=== PATIENT | male | born 1965 | race African-American/Black ===

== ENCOUNTER 2016-08-06 18:35 | Emergency (ER) | payer SELFPAY ==
[~2016-08-06] VITALS: Ht 167.6 cm; Wt 96.0 kg
[~2016-08-06 18:35] MED LIST: 1-ME1LIQ PO; ALBU0.086 INH; ALBU6.7H INH; ASPI325T PO; GLUCTAB PO; IBUP800T23 PO; IPRA0.02 INH; LISI-363 PO; ROBA750T3 PO
[2016-08-06 18:37] VITALS: BP 228/128; PULSE 88; RESP 14; TEMP 98.7; O2SAT 95
[2016-08-06 20:09] VITALS: PULSE 82; RESP 18; O2SAT 95
[2016-08-06] MEDS ORDERED: ALBU6.7H INH (22:15)
[2016-08-06] MEDS ORDERED: LISI-515 PO (22:15)
[2016-08-06] MEDS ORDERED: ASPI81CH CHEW (22:15)
--- NOTE | 2016-08-06 22:23 | PD ---
HPI Chief Complaint: Hypertension Time Seen by Provider: 22:23 Travel History International Travel<30 days: No Contact w/Intl Traveler<30days: No Traveled to known affect area: No History of Present Illness HPI Patient comes in complaining of shortness of breath that has been getting progressively worse over the past 3 days. Patient reports he has a history of asthma has been taking his albuterol for this, last dose around 1500 today as well as NyQuil for symptomatic relief. Patient reports he's been coughing up some greenish phlegm. Patient reports he has been around his boss who had the flu. Patient denies any nausea, vomiting, abdominal pain, headache,tingling anywhere, back pain, or known fevers. Patient reports that he has chest pain with cough only. Patient's reports he's been off his blood pressure medicine for more than a week and has appointment with his primary care next week for refill. PFSH Past Medical History Asthma: Yes Cardiovascular Problems: Yes (HTN--RAN OUT OF MED 2 WEKS AGO) Diabetes: Yes Patient Takes Glucophage: No Diminished Hearing: No Hypertension: Yes Musculoskeletal: No Neurologic: Yes Immunizations Current: No Migraines: Yes Tetanus Vaccination: > 5 Years Influenza Vaccination: No Social History Alcohol Use: Yes (COUPLE OF BEERS PER WEEK) Tobacco Use: No Substance Use: No (COCAINE) Allergies-Medications (Allergen,Severity, Reaction): Coded Allergies: No Known Allergies (Verified , 08/06/16) Reported Meds & Prescriptions Reported Meds & Active Scripts Active Reported Proventil Hfa 6.7 GM Inh (Albuterol Sulfate) 90 Mcg/Act Aer 2 Puff INH Q4-6H PRN Proventil Hfa 6.7 GM Inh (Albuterol Sulfate) 90 Mcg/Act Aer 2 Puff INH Q4-6H PRN Aspirin 81 Mg Chew 81 Mg CHEW DAILY Lisinopril 20 Mg Tab 20 Mg PO BID Review of Systems Except as stated in HPI: all other systems reviewed are Neg Physical Exam Narrative GENERAL: Well-developed, overly nourished, in no acute distress, and non-ill appearing. SKIN: Warm and dry. HEAD: Atraumatic. Normocephalic. EYES: Pupils equal and round. EOMI. No scleral icterus. No injection or drainage. ENT: No nasal bleeding or discharge. Mucous membranes pink and moist. NECK: Trachea midline. No cervical lymphadenopathy. Supple. No nuclear rigidity. CARDIOVASCULAR: Regular rate and rhythm. No murmur appreciated. Radial pulses are 2+, equal, and intact bilaterally. RESPIRATORY: No accessory muscle use. No respiratory distress. Wheezing and tightness noted throughout. Patient speaking in full sentences. GASTROINTESTINAL: Abdomen soft, non-tender, nondistended. Hepatic and splenic margins not palpable. Normal bowel sounds 4. No pulsatile mass. MUSCULOSKELETAL: No obvious deformities. No clubbing. No cyanosis. No edema. Full range of motion. NEUROLOGICAL: Awake and alert. No obvious cranial nerve deficits. Motor grossly within normal limits. Normal speech. PSYCHIATRIC: Appropriate mood and affect; insight and judgment normal. Data Data Last Documented VS Vital Signs Date Time Temp Pulse Resp B/P Pulse Ox O2 Delivery O2 Flow Rate FiO2 08/06/16 22:06 76 18 95 Room Air 08/06/16 18:37 98.7 228/128 Orders Complete Blood Count With Diff (08/06/16 22:20) Basic Metabolic Panel (Bmp) (08/06/16 22:20) Magnesium (Mg) (08/06/16 22:20) Influenzae A/B Antigen (08/06/16 22:20) Iv Access Insert/Monitor (08/06/16 22:20) Electrocardiogram (08/06/16 22:20) Ecg Monitoring (08/06/16 22:20) Oximetry (08/06/16 22:20) Oxygen Administration (08/06/16 22:20) Chest, Single Ap (08/06/16 22:20) Sodium Chloride 0.9% Flush (Ns Flush) (08/06/16 22:30) Methylprednisolone So Succ Inj (Solumedr (08/06/16 22:30) Albuterol Neb (Albuterol Neb) (08/06/16 22:30) Lisinopril (Prinivil) (08/06/16 22:30) MDM Medical Decision Making Medical Screen Exam Complete: Yes Emergency Medical Condition: Yes Differential Diagnosis Asthma exacerbation, pneumonia, influenza, hypertension, other Narrative Course Patient was seen and examined. Initial and radiological studies were ordered. Patient was signed out to Dr. Nash. Please see his documentation final diagnosis and disposition. James Sorto Aug 06, 2016 22:23
[2016-08-06] MEDS: RESP: ALBUTEROL 2.5 MG/3 ML NEB (SCH) INH ×2 (22:28→22:29)
[2016-08-06 22:30] VITALS: O2SAT 94
[2016-08-06] MEDS ORDERED: LISINOPRIL 20 MG TAB PO ONE (22:30)
[2016-08-06] MEDS ORDERED: methylPREDNISolone SOD SUCC 125 MG/2 ML VIAL IVP ONE (22:30)
[2016-08-06] MEDS ORDERED: SODIUM CHLORIDE 0.9% FLUSH 5 ML FLUSH IVF PRN (22:30)
--- NOTE | 2016-08-06 23:00 | RADRPT ---
EXAM DATE/TIME: 08/06/2016 20:33 [facility] COMPARISON: No previous studies available for comparison. INDICATIONS : Shortness of breath and cough. MEDICAL HISTORY : Hypertension. Asthma. SURGICAL HISTORY : None. ENCOUNTER: Initial ACUITY: 2 days PAIN SCORE: 0/10 LOCATION: Bilateral chest FINDINGS: A single view of the chest demonstrates the lungs to be symmetrically aerated without evidence of mas s, infiltrate or effusion. The cardiomediastinal contours are unremarkable. Osseous structures are intact. CONCLUSION: No acute disease. Mason Mathis MD on August 06, 2016 at 22:59 Board Certified Radiologist. This report was verified electronically.
[2016-08-07] VITALS: BP 225/127; PULSE 76; RESP 18; TEMP 98.4; O2SAT 96
[2016-08-07 00:05] LABS: BICARBONATE 27.1 MEQ/L (21.0-32.0); MAGNESIUM 2.2 MG/DL (1.5-2.5); POTASSIUM 3.8 MEQ/L (3.5-5.1)
[2016-08-07] MEDS ORDERED: cloNIDine HCL 0.1 MG TAB PO ONE (00:45)
[2016-08-07 00:50] LABS: AUTOMATED NEUTROPHIL # 3.9 TH/MM3 (1.8-7.7); BASOPHIL % 0.6 % (0.0-2.0); EOSINOPHIL # 0.3 TH/MM3 (0-0.4); EOSINOPHIL % 4.6 % (0.0-4.0); HEMATOCRIT 42.4 % (39.0-51.0); HEMO FLAGS DIFF FINAL; LYMPH % 30.4 % (9.0-44.0); LYMPHOCYTE # 2.2 TH/MM3 (1.0-4.8); MEAN CELL VOLUME 93.2 FL (80.0-100.0); MEAN CORPUSCULAR HGB CONC 34.3 % (32.0-36.0); MONO % 11.3 % (0.0-8.0); NEUT % 53.1 % (16.0-70.0); PLATELET COUNT 313 TH/MM3 (150-450); RED BLOOD COUNT 4.55 MIL/MM3 (4.50-5.90); RED CELL DISTRIBUTION WIDTH 14.2 % (11.6-17.2); WHITE BLOOD COUNT 7.3 TH/MM3 (4.0-11.0)
[2016-08-07] MEDS ORDERED: LISI-515 PO (01:45)
[2016-08-07] MEDS ORDERED: PRED20 PO (01:45)
--- NOTE | 2016-08-07 01:46 | PD ---
Data Data Last Documented VS Vital Signs Date Time Temp Pulse Resp B/P Pulse Ox O2 Delivery O2 Flow Rate FiO2 08/07/16 02:21 82 18 173/110 96 Room Air 08/07/16 00:00 98.4 08/06/16 23:54 2 Orders Complete Blood Count With Diff (08/06/16 22:20) Basic Metabolic Panel (Bmp) (08/06/16 22:20) Magnesium (Mg) (08/06/16 22:20) Influenzae A/B Antigen (08/06/16 22:20) Iv Access Insert/Monitor (08/06/16 22:20) Electrocardiogram (08/06/16 22:20) Ecg Monitoring (08/06/16 22:20) Oximetry (08/06/16 22:20) Oxygen Administration (08/06/16 22:20) Chest, Single Ap (08/06/16 22:20) Sodium Chloride 0.9% Flush (Ns Flush) (08/06/16 22:30) Methylprednisolone So Succ Inj (Solumedr (08/06/16 22:30) Albuterol Neb (Albuterol Neb) (08/06/16 22:30) Lisinopril (Prinivil) (08/06/16 22:30) Clonidine (Catapres) (08/07/16 00:45) Albuterol Hfa Inh (Proair Hfa Inh) (08/07/16 02:00) Labs Laboratory Tests Test 08/06/16 23:15 White Blood Count 7.3 TH/MM3 Red Blood Count 4.55 MIL/MM3 Hemoglobin 14.6 GM/DL Hematocrit 42.4 % Mean Corpuscular Volume 93.2 FL Mean Corpuscular Hemoglobin 32.0 PG Mean Corpuscular Hemoglobin 34.3 % Concent Red Cell Distribution Width 14.2 % Platelet Count 313 TH/MM3 Mean Platelet Volume 7.2 FL Neutrophils (%) (Auto) 53.1 % Lymphocytes (%) (Auto) 30.4 % Monocytes (%) (Auto) 11.3 % Eosinophils (%) (Auto) 4.6 % Basophils (%) (Auto) 0.6 % Neutrophils # (Auto) 3.9 TH/MM3 Lymphocytes # (Auto) 2.2 TH/MM3 Monocytes # (Auto) 0.8 TH/MM3 Eosinophils # (Auto) 0.3 TH/MM3 Basophils # (Auto) 0.0 TH/MM3 CBC Comment DIFF FINAL Differential Comment Sodium Level 142 MEQ/L Potassium Level 3.8 MEQ/L Chloride Level 107 MEQ/L Carbon Dioxide Level 27.1 MEQ/L Anion Gap 8 MEQ/L Blood Urea Nitrogen 18 MG/DL Creatinine 1.28 MG/DL Estimat Glomerular Filtration 71 ML/MIN Rate Random Glucose 89 MG/DL Calcium Level 8.9 MG/DL Magnesium Level 2.2 MG/DL [facility] Medical Record Reviewed: Yes Supervised Visit with RAMIRO: Yes Narrative Course CBC & BMP Diagram 08/06/16 23:15 Last 24 hours Impressions Chest X-Ray 08/06/16 2220 Signed Impressions: Service Date/Time: Saturday, August 06, 2016 20:33 - CONCLUSION: No acute disease. Mason Mathis MD Patient reports feeling quite a bit better upon reassessment about 1:30 AM. He has received breathing treatments and steroids. He received clonidine about 15 or 20 minutes prior to the reassessment. His blood pressure was 201/115. We' ll send him home with a lisinopril prescription. The patient has follow-up with primary care provider in a few days. Repeat blood pressure 170/110 at 2:30 PM. He is asymptomatic. Follow-up with primary care as discussed. Diagnosis Primary Impression: Hypertension Qualified Code: I10 - Essential hypertension Additional Impression: Asthma Qualified Code: J45.901 - Asthma with acute exacerbation, unspecified asthma severity Referrals: Primary Care Physician 2 days Additional Instruction: You have a choice when it comes to health care, and we are glad that you chose [facility]. Hopefully, we have met your expectations on today's visit. You are welcome to return to [facility] at any time, as we are committed to meeting the health care needs of our community. Med/Other Pt SpecificInfo: Prescription(s) given Scripts Prednisone 20 Mg Tab40 Mg PO DAILY 4 Days Ref 0 Take 40 mg (2 tablets) daily for 5 days Prov:Yuriy Nash MD 08/07/16 Lisinopril 20 Mg Tab20 Mg PO BID #30 TAB Ref 0 Prov:Yuriy Nash MD 08/07/16 Disposition: 01 DISCHARGE HOME Condition: Stable Yuriy Nash MD Aug 07, 2016 01:46
[2016-08-07] MEDS ORDERED: ALBUTEROL SULFATE 90 MCG/ACT HFA 8 GM INHALER INH ONE (02:00)
[2016-08-07 02:21] VITALS: BP 173/110; PULSE 82; RESP 18; O2SAT 96
--- NOTE | 2016-08-07 22:02 | EKG ---
Date Performed: 08/06/2016 Time Performed: 23:59:20 PTAGE: 51 years EKG: Sinus rhythm LEFT VENTRICULAR HYPERTROPHY AND ST-T CHANGE ABNORMAL ECG PREVIOUS TRACING : 03/30/2011 02.34 Compared to the previous tracing, previously early repolari zation now with more ST/T waves changes of LVH DOCTOR: Ariel Nash Interpretating Date/Time 08/07/2016 22:01:25
== END 2016-08-07 03:01 | disposition home or self-care (01) ==
LOC: NEPC 18:35
DX: I10 Essential (primary) hypertension (principal); J45.909 Unspecified asthma, uncomplicated; E11.9 Type 2 diabetes mellitus without complications; R94.31 Abnormal electrocardiogram [ECG] [EKG]; Z79.84 Long term (current) use of oral hypoglycemic drugs
CPT/HCPCS: 71010; 80048; 83735; 85025; 87804; 93005; 94640; 94664; 96374; 99284; J2930; J7613

== ENCOUNTER 2016-09-16 08:59 | Emergency (ER) | payer SELFPAY ==
[~2016-09-16] VITALS: Ht 167.6 cm; Wt 90.0 kg
[~2016-09-16 08:59] MED LIST changes: -1-ME1LIQ PO; -ALBU0.086 INH; -ASPI325T PO; +ASPI81CH CHEW; -GLUCTAB PO; -IBUP800T23 PO; -IPRA0.02 INH; -LISI-363 PO; +LISI-515 PO; +PRED20 PO; -ROBA750T3 PO
[2016-09-16 09:00] VITALS: BP 176/102; PULSE 72; RESP 20; TEMP 97.5; O2SAT 100
--- NOTE | 2016-09-16 09:38 | PD ---
HPI Chief Complaint: Abdominal Pain Time Seen by Provider: 09:35 Travel History International Travel<30 days: No Contact w/Intl Traveler<30days: No Traveled to known affect area: No History of Present Illness HPI 51-year-old male with no significant past medical issues, presents to the ER today because he states that he has 8/10 pain that started overnight in the epigastric region, several episodes of diarrhea after eating [place] greens last night. He denies any fevers, nausea, vomiting, chest pains, or any other symptoms. He states that the pain is now getting better and is now a 5 out of 10. He does not know any sick contacts. He does not know of any exacerbating or alleviating factors. Modifying Factors: None Associated Signs & Symptoms: Epigastric abdominal pain, diarrhea Risk Factors: Possible bad food exposure PFSH Past Medical History Asthma: Yes Cardiovascular Problems: Yes Diabetes: Yes Patient Takes Glucophage: No Diminished Hearing: No Hypertension: Yes Musculoskeletal: No Neurologic: Yes Immunizations Current: No Migraines: Yes Social History Alcohol Use: Yes (COUPLE OF BEERS PER WEEK) Tobacco Use: No Substance Use: Yes (hx COCAINE) Allergies-Medications (Allergen,Severity, Reaction): Coded Allergies: No Known Allergies (Verified , 08/06/16) Reported Meds & Prescriptions Reported Meds & Active Scripts Active Lisinopril 20 Mg Tab 20 Mg PO BID Reported Proventil Hfa 6.7 GM Inh (Albuterol Sulfate) 90 Mcg/Act Aer 2 Puff INH Q4-6H PRN Aspirin 81 Mg Chew 81 Mg CHEW DAILY Review of Systems Except as stated in HPI: all other systems reviewed are Neg Physical Exam Narrative GENERAL: Well-developed middle age -Fil[place]ino male patient currently not in any acute distress. Awake and oriented 3. SKIN: Warm and dry. HEAD: Atraumatic. Normocephalic. EYES: Pupils equal and round. No scleral icterus. No injection or drainage. ENT: No nasal bleeding or discharge. Mucous membranes pink and moist. NECK: Trachea midline. No JVD. CARDIOVASCULAR: Regular rate and rhythm. No murmur appreciated. RESPIRATORY: No accessory muscle use. Clear to auscultation. Breath sounds equal bilaterally. GASTROINTESTINAL: Abdomen soft, non-tender, nondistended. Hepatic and splenic margins not palpable. MUSCULOSKELETAL: No obvious deformities. No clubbing. No cyanosis. No edema. NEUROLOGICAL: Awake and alert. No obvious cranial nerve deficits. Motor grossly within normal limits. Normal speech. PSYCHIATRIC: Appropriate mood and affect; insight and judgment normal. Data Data Last Documented VS Vital Signs Date Time Temp Pulse Resp B/P Pulse Ox O2 Delivery O2 Flow Rate FiO2 09/16/16 11:00 60 16 157/90 97 Room Air 09/16/16 09:00 97.5 Orders Complete Blood Count With Diff (09/16/16 09:35) Comprehensive Metabolic Panel (09/16/16 09:35) Lipase (09/16/16 09:35) Abdomen, Flat & Upright (09/16/16 ) Iv Access Insert/Monitor (09/16/16 09:35) Ecg Monitoring (09/16/16 09:35) Oximetry (09/16/16 09:35) Sodium Chloride 0.9% Flush (Ns Flush) (09/16/16 09:45) Influenzae A/B Antigen (09/16/16 09:35) Labs Laboratory Tests Test 09/16/16 09:44 White Blood Count 6.2 TH/MM3 Red Blood Count 4.54 MIL/MM3 Hemoglobin 14.5 GM/DL Hematocrit 43.1 % Mean Corpuscular Volume 94.8 FL Mean Corpuscular Hemoglobin 31.9 PG Mean Corpuscular Hemoglobin 33.6 % Concent Red Cell Distribution Width 14.6 % Platelet Count 310 TH/MM3 Mean Platelet Volume 7.0 FL Neutrophils (%) (Auto) 54.2 % Lymphocytes (%) (Auto) 32.7 % Monocytes (%) (Auto) 10.5 % Eosinophils (%) (Auto) 2.3 % Basophils (%) (Auto) 0.3 % Neutrophils # (Auto) 3.4 TH/MM3 Lymphocytes # (Auto) 2.0 TH/MM3 Monocytes # (Auto) 0.7 TH/MM3 Eosinophils # (Auto) 0.1 TH/MM3 Basophils # (Auto) 0.0 TH/MM3 CBC Comment DIFF FINAL Differential Comment Sodium Level 141 MEQ/L Potassium Level 4.3 MEQ/L Chloride Level 107 MEQ/L Carbon Dioxide Level 28.4 MEQ/L Anion Gap 6 MEQ/L Blood Urea Nitrogen 13 MG/DL Creatinine 1.33 MG/DL Estimat Glomerular Filtration 68 ML/MIN Rate Random Glucose 98 MG/DL Calcium Level 8.2 MG/DL Total Bilirubin 0.3 MG/DL Aspartate Amino Transf 26 U/L (AST/SGOT) Alanine Aminotransferase 33 U/L (ALT/SGPT) Alkaline Phosphatase 39 U/L Total Protein 7.1 GM/DL Albumin 3.2 GM/DL Lipase 215 U/L MDM Medical Decision Making Medical Screen Exam Complete: Yes Emergency Medical Condition: Yes Medical Record Reviewed: Yes Interpretation(s) Laboratory Tests Test 09/16/16 09:44 Monocytes (%) (Auto) 10.5 % (0.0-8.0) Creatinine 1.33 MG/DL (0.60-1.30) Estimat Glomerular Filtration 68 ML/MIN (>89) Rate Calcium Level 8.2 MG/DL (8.5-10.1) Alkaline Phosphatase 39 U/L (45-117) Albumin 3.2 GM/DL (3.4-5.0) Differential Diagnosis Epigastric abdominal pain, diarrheagastritis versus gastroenteritis versus foodborne illness versus viral syndrome versus dehydration versus pancreatitis versus metabolic issues Narrative Course Abdomen is fairly benign. X-ray did not show any signs of acute obstruction or free air. Lab work shows no significant metabolic issues or influenza. At this point, my plan would be to release him with follow-up to primary care physician. Return for any worsening in symptoms as needed. The plan has discussed with him and he states understanding. Diagnosis Primary Impression: Abdominal pain Disposition: DISCHARGE HOME Condition: Stable SoonthJoe barajas MD Sep 16, 2016 09:38
[2016-09-16] MEDS ORDERED: SODIUM CHLORIDE 0.9% FLUSH 5 ML FLUSH IVF PRN (09:45)
[2016-09-16 10:01] LABS: AUTOMATED NEUTROPHIL # 3.4 TH/MM3 (1.8-7.7); BASOPHIL % 0.3 % (0.0-2.0); EOSINOPHIL # 0.1 TH/MM3 (0-0.4); EOSINOPHIL % 2.3 % (0.0-4.0); HEMATOCRIT 43.1 % (39.0-51.0); HEMO FLAGS DIFF FINAL; LYMPH % 32.7 % (9.0-44.0); MEAN CELL VOLUME 94.8 FL (80.0-100.0); MEAN CORPUSCULAR HEMOGLOBIN 31.9 PG (27.0-34.0); MEAN CORPUSCULAR HGB CONC 33.6 % (32.0-36.0); MONO % 10.5 % (0.0-8.0); NEUT % 54.2 % (16.0-70.0); PLATELET COUNT 310 TH/MM3 (150-450); RED BLOOD COUNT 4.54 MIL/MM3 (4.50-5.90); RED CELL DISTRIBUTION WIDTH 14.6 % (11.6-17.2); WHITE BLOOD COUNT 6.2 TH/MM3 (4.0-11.0)
[2016-09-16 10:25] LABS: ANION GAP 6 MEQ/L (5-15); AST (GOT) 26 U/L (15-37); BICARBONATE 28.4 MEQ/L (21.0-32.0); BLOOD UREA NITROGEN 13 MG/DL (7-18); CHLORIDE 107 MEQ/L (98-107); GLOMERULAR FILTRATION RATE 68 ML/MIN (>89); POTASSIUM 4.3 MEQ/L (3.5-5.1); SODIUM (NA) 141 MEQ/L (136-145)
[2016-09-16 10:29] LABS: ALKALINE PHOSPHATASE 39 U/L (45-117); ALT (GPT) 33 U/L (12-78); TOTAL BILIRUBIN ADULT 0.3 MG/DL (0.2-1.0)
[2016-09-16 11:00] VITALS: BP 157/90; PULSE 60; RESP 16; O2SAT 97
--- NOTE | 2016-09-16 12:58 | RADRPT ---
EXAM DATE/TIME: 09/16/2016 10:16 [facility] COMPARISON: No previous studies available for comparison. INDICATIONS : Abdomen pain. MEDICAL HISTORY : None. SURGICAL HISTORY : None. ENCOUNTER: Initial ACUITY: 1 day PAIN SCORE: 5/10 LOCATION: Bilateral abdomen FINDINGS: Supine and upright views of the abdomen were performed. The abdominal bowel gas pattern is normal. No air fluid levels are seen. No abnormal masses, calcifications, or organomegaly is seen. The visu alized lower lungs are clear. No evidence of free intraperitoneal gas. The osseous structures are u nremarkable. CONCLUSION: Radiographically benign abdomen. Oh Prieto MD on September 16, 2016 at 12:56 Board Certified Radiologist. This report was verified electronically.
== END 2016-09-16 11:45 | disposition home or self-care (01) ==
LOC: NEPE 08:59
DX: R10.13 Epigastric pain (principal); R19.7 Diarrhea, unspecified; J45.909 Unspecified asthma, uncomplicated; E11.9 Type 2 diabetes mellitus without complications; I10 Essential (primary) hypertension
CPT/HCPCS: 74020; 80053; 83690; 85025; 87804; 99284

== ENCOUNTER 2016-11-16 07:57 | Emergency (ER) | payer SELFPAY ==
[~2016-11-16] VITALS: Ht 167.6 cm; Wt 95.5 kg
[~2016-11-16 07:57] MED LIST changes: -PRED20 PO
[2016-11-16 07:58] VITALS: BP 183/106; PULSE 73; RESP 18; TEMP 97.9; O2SAT 97
--- NOTE | 2016-11-16 09:54 | RADRPT ---
EXAM DATE/TIME: 11/16/2016 09:14 [facility] COMPARISON: No previous studies available for comparison. INDICATIONS : Left knee pain, swelling for 1 week with no known trauma MEDICAL HISTORY : None. SURGICAL HISTORY : None. ENCOUNTER: Initial ACUITY: 1 week PAIN SCORE: 7/10 LOCATION: Left anterior knee FINDINGS: 4 views of the left knee. Moderate to large joint effusion. No evidence of joint narrowing. Small lat eral part osteophytes. Bone alignment within normal limits. No evidence of fracture. CONCLUSION: Prominent joint effusion. No evidence of fracture. Minimal osteoarthritic findings. Paolo Nunn MD on November 16, 2016 at 9:51 Board Certified Radiologist. This report was verified electronically.
--- NOTE | 2016-11-16 10:04 | PD ---
HPI Chief Complaint: Musculoskeletal Complaint Time Seen by Provider: 08:50 Travel History International Travel<30 days: No Contact w/Intl Traveler<30days: No Traveled to known affect area: No History of Present Illness HPI Patient is a 51-year-old male presents emergency Department with complaint of left knee pain. 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 Approximately 3 days ago he noticed pain in the left knee. He does not remember any specific injury however. He notes swelling to the knee and pain in the medial joint and popliteal region. He notes a slight amount of swelling and pain that radiates into the proximal calf. No recent travel, history of DVT or PE risk factors. States bending the knee past 90 reproduces pain, improved with Tylenol. PFSH Past Medical History Hx Anticoagulant Therapy: No Asthma: Yes Cardiovascular Problems: No Chemotherapy: No Cerebrovascular Accident: No Diabetes: No Diminished Hearing: No Hypertension: Yes Musculoskeletal: No Neurologic: Yes Respiratory: No Immunizations Current: No Migraines: Yes Social History Alcohol Use: Yes (COUPLE OF BEERS PER WEEK) Tobacco Use: No Substance Use: Yes (hx COCAINE) Allergies-Medications (Allergen,Severity, Reaction): Coded Allergies: No Known Allergies (Verified , 08/06/16) Reported Meds & Prescriptions Reported Meds & Active Scripts Active Lisinopril 20 Mg Tab 20 Mg PO BID Reported Proventil Hfa 6.7 GM Inh (Albuterol Sulfate) 90 Mcg/Act Aer 2 Puff INH Q4-6H PRN Aspirin 81 Mg Chew 81 Mg CHEW DAILY Review of Systems Except as stated in HPI: all other systems reviewed are Neg Physical Exam Narrative GENERAL: Obese male in no acute distress SKIN: Focused skin assessment warm/dry. HEAD: Normocephalic. EYES: No scleral icterus. No injection or drainage. ENT: Mucous membranes pink and moist. NECK: Supple CARDIOVASCULAR: Regular rate and rhythm. RESPIRATORY: No accessory muscle use. GASTROINTESTINAL: Obese MUSCULOSKELETAL: Left knee with obvious swelling, questionable joint effusion. The swelling does extend into the proximal calf region. Mild tenderness palpation along the medial joint line. No obvious ligamentous laxity though exam certainly is limited due to patient relaxation. No positive meniscal testing. Patient is able fully extend the knee and flex beyond 90. No palpable cords within the calf. NEUROLOGICAL: Awake and alert. Normal speech. PSYCHIATRIC: Appropriate mood and affect; insight and judgment normal. Data Data Last Documented VS Vital Signs Date Time Temp Pulse Resp B/P Pulse Ox O2 Delivery O2 Flow Rate FiO2 11/16/16 07:58 97.9 73 18 183/106 97 Room Air Orders Knee, Complete (4vws) (11/16/16 ) Us Leg Venous Doppler (11/16/16 ) MDM Medical Decision Making Medical Screen Exam Complete: Yes Emergency Medical Condition: Yes Medical Record Reviewed: Yes Differential Diagnosis 51-year-old male here with complaint of atraumatic left knee pain. Differential includes ligamentous injury, meniscal injury, joint effusion, DVT, Colvin cyst. Narrative Course X-rays of the left knee were obtained showing joint effusion but no evidence of bony injury. Duplex ultrasound the left lower extremity showed no evidence of DVT. Elongated 7.7 x 2.0 x 5.36 cm fluid collection in the popliteal fossa likely representing Colvin cyst. 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 Tylenol, ibuprofen as needed for pain. Elevate for swelling. Med/Other Pt SpecificInfo: No Change to Meds Disposition: 01 DISCHARGE HOME Condition: Stable Haydee Garcia MD November 16, 2016 10:04
--- NOTE | 2016-11-16 10:52 | RADRPT ---
EXAM DATE/TIME: 11/16/2016 09:41 [facility] COMPARISON: No previous studies available for comparison. INDICATIONS : Left leg swelling. MEDICAL HISTORY : Head trauma. Migraines. Hyperlipidemia. Asthma. HTN. Hay fever. Substance use. SURGICAL HISTORY : Right arm surgery. ENCOUNTER: Initial ACUITY: 4 - 6 days PAIN SCORE: 8/10 LOCATION: Left leg. TECHNIQUE: Venous ultrasound of the leg was performed from the inguinal ligament to the proximal calf. Real-lars e, color Doppler and spectral tracing, compression and augmentation techniques were used. FINDINGS: There is normal compressibility of the deep venous system from the inguinal region to the proximal ca lf. No echogenic clot is seen in the lumen of the common femoral, femoral, popliteal, and posterior tibial veins. There is a normal response of the venous system to proximal and distal augmentation an d respiration. CONCLUSION: 1. No evidence of left lower extremity DVT. 2. Elongated 7.7 x 2.0 x 5.3 cm fluid collection in the popliteal fossa likely represents a Colvin cys t. Paolo Nunn MD on November 16, 2016 at 10:50 Board Certified Radiologist. This report was verified electronically.
[2016-11-16] MEDS ORDERED: LISI-515 PO (11:04)
== END 2016-11-16 11:35 | disposition home or self-care (01) ==
LOC: NEPC 09:20
DX: M71.22 Synovial cyst of popliteal space [Baker], left knee (principal); M79.89 Other specified soft tissue disorders
CPT/HCPCS: 73564; 93971

== ENCOUNTER 2016-12-29 11:09 | Emergency (ER) | payer SELFPAY ==
[~2016-12-29] VITALS: Ht 167.6 cm; Wt 85.0 kg
[2016-12-29 11:10] VITALS: BP 197/114; PULSE 82; RESP 20; TEMP 97.9; O2SAT 97
[2016-12-29] MEDS ORDERED: SODIUM CHLOR 0.9% 1000 ML INJ 1,000 ML IV SCH (11:26)
[2016-12-29] MEDS ORDERED: FAMOTIDINE 20 MG/2 ML VIAL IV PUSH ONE (11:30)
[2016-12-29] MEDS ORDERED: PANTOPRAZOLE SODIUM 40 MG VIAL IVP ONE (11:30)
[2016-12-29] MEDS ORDERED: ONDANSETRON HCL 4 MG/2 ML VIAL IVP ONE (11:30)
[2016-12-29] MEDS ORDERED: MORPHINE SULFATE 4 MG/ML INJ IV PUSH ONE ×2 (11:30→13:15)
[2016-12-29 11:47] VITALS: O2SAT 99
--- NOTE | 2016-12-29 12:02 | PD ---
HPI Chief Complaint: GI Complaint Time Seen by Provider: 11:59 Travel History International Travel<30 days: No Contact w/Intl Traveler<30days: No Traveled to known affect area: No History of Present Illness HPI 51-year-old male that presents to the ED for evaluation of epigastric pain, nausea and vomiting and hematemesis. Patient has had this since this morning. Per patient he ate some chicken and the symptoms started. Per patient he felt like that she can attending when all the way through. Per patient he vomited a couple times blood. Per patient he was a lot. He cannot really give me a quantity he states that it was bright red. She denies ever having like this before. Patient states having some epigastric discomfort. He denies any chest pain. No shortness of breath. He denies taking any NSAIDs. No history of ulcers. No bowel movement issues or urinary issues. Denies any other symptoms. Fevers chills or sweats. No allergies to medication. Per patient the pain is 6 out of 10. PFSH Past Medical History Hx Anticoagulant Therapy: No Asthma: Yes Cardiovascular Problems: No Chemotherapy: No Cerebrovascular Accident: No Diabetes: No Diminished Hearing: No Hypertension: Yes Musculoskeletal: No Neurologic: Yes Respiratory: No Immunizations Current: No Migraines: Yes Tetanus Vaccination: < 5 Years Influenza Vaccination: No Social History Alcohol Use: No Tobacco Use: No Substance Use: No Allergies-Medications (Allergen,Severity, Reaction): Coded Allergies: No Known Allergies (Verified , 08/06/16) Reported Meds & Prescriptions Reported Meds & Active Scripts Active Ranitidine (Ranitidine HCl) 150 Mg Tab 150 Mg PO BID Protonix (Pantoprazole Sodium) 40 Mg Tab 40 Mg PO DAILY Lisinopril 20 Mg Tab 20 Mg PO BID Reported Proventil Hfa 6.7 GM Inh (Albuterol Sulfate) 90 Mcg/Act Aer 2 Puff INH Q4-6H PRN Aspirin 81 Mg Chew 81 Mg CHEW DAILY Review of Systems Except as stated in HPI: all other systems reviewed are Neg Physical Exam Narrative GENERAL: SKIN: Warm and dry. HEAD: Atraumatic. Normocephalic. EYES: Pupils equal and round. No scleral icterus. No injection or drainage. ENT: No nasal bleeding or discharge. Mucous membranes pink and moist. Tongue is midline. No uvula deviation. NECK: Trachea midline. No JVD. CARDIOVASCULAR: Regular rate and rhythm. No murmurs, S3, S4. RESPIRATORY: No accessory muscle use. Clear to auscultation. Breath sounds equal bilaterally. GASTROINTESTINAL: Abdomen soft, tender to palpation on the epigastric area, nondistended. Hepatic and splenic margins not palpable. MUSCULOSKELETAL: Extremities without clubbing, cyanosis, or edema. No obvious deformities. Full range of motion of the upper and lower extremities bilaterally. 2+ pulses bilaterally. NEUROLOGICAL: Awake and alert. No obvious cranial nerve deficits. Motor grossly within normal limits. Five out of 5 muscle strength in the arms and legs. Normal speech. PSYCHIATRIC: Appropriate mood and affect; insight and judgment normal. Data Data Last Documented VS Vital Signs Date Time Temp Pulse Resp B/P Pulse Ox O2 Delivery O2 Flow Rate FiO2 12/29/16 11:47 99 12/29/16 11:10 97.9 82 20 197/114 Room Air Orders Complete Blood Count With Diff (12/29/16 11:26) Comprehensive Metabolic Panel (12/29/16 11:26) Lipase (12/29/16 11:26) Prothrombin Time / Inr (Pt) (12/29/16 11:26) Act Partial Throm Time (Ptt) (12/29/16 11:26) Urinalysis - C+S If Indicated (12/29/16 11:26) Ct Abd/Pel W Iv Contrast(Rout) (12/29/16 11:26) Iv Access Insert/Monitor (12/29/16 11:26) Ecg Monitoring (12/29/16 11:26) Oximetry (12/29/16 11:26) Morphine Inj (Morphine Inj) (12/29/16 11:30) Ondansetron Inj (Zofran Inj) (12/29/16 11:30) Pantoprazole Inj (Protonix Inj) (12/29/16 11:30) Sodium Chlor 0.9% 1000 Ml Inj (Ns 1000 M (12/29/16 11:26) Famotidine Inj (Pepcid Inj) (12/29/16 11:30) Iohexol 350 Inj (Omnipaque 350 Inj) (12/29/16 12:43) Morphine Inj (Morphine Inj) (12/29/16 13:15) Mandatory Outpatient Referral (12/29/16 13:07) Labs Laboratory Tests Test 12/29/16 11:45 White Blood Count 8.3 TH/MM3 Red Blood Count 4.37 MIL/MM3 Hemoglobin 14.0 GM/DL Hematocrit 40.4 % Mean Corpuscular Volume 92.6 FL Mean Corpuscular Hemoglobin 32.0 PG Mean Corpuscular Hemoglobin 34.6 % Concent Red Cell Distribution Width 14.4 % Platelet Count 323 TH/MM3 Mean Platelet Volume 6.7 FL Neutrophils (%) (Auto) 69.5 % Lymphocytes (%) (Auto) 21.3 % Monocytes (%) (Auto) 7.4 % Eosinophils (%) (Auto) 1.5 % Basophils (%) (Auto) 0.3 % Neutrophils # (Auto) 5.7 TH/MM3 Lymphocytes # (Auto) 1.8 TH/MM3 Monocytes # (Auto) 0.6 TH/MM3 Eosinophils # (Auto) 0.1 TH/MM3 Basophils # (Auto) 0.0 TH/MM3 CBC Comment DIFF FINAL Differential Comment Prothrombin Time 11.2 SEC Prothromb Time International 1.0 RATIO Ratio Activated Partial 25.2 SEC Thromboplast Time Sodium Level 139 MEQ/L Potassium Level 4.2 MEQ/L Chloride Level 107 MEQ/L Carbon Dioxide Level 23.2 MEQ/L Anion Gap 9 MEQ/L Blood Urea Nitrogen 11 MG/DL Creatinine 1.19 MG/DL Estimat Glomerular Filtration 78 ML/MIN Rate Random Glucose 75 MG/DL Calcium Level 8.5 MG/DL Total Bilirubin 0.3 MG/DL Aspartate Amino Transf 26 U/L (AST/SGOT) Alanine Aminotransferase 27 U/L (ALT/SGPT) Alkaline Phosphatase 46 U/L Total Protein 7.5 GM/DL Albumin 3.5 GM/DL Lipase 133 U/L [facility] Medical Decision Making Medical Screen Exam Complete: Yes Emergency Medical Condition: Yes Medical Record Reviewed: Yes Interpretation(s) CBC & BMP Diagram 12/29/16 11:45 LFTS WNL coags WNL Last Impressions Abdomen/Pelvis CT 12/29/16 1126 Signed Impressions: Service Date/Time: Thursday, December 29, 2016 12:29 - CONCLUSION: 1. 9.6 x 8.1 cm right-sided inguinal hernia containing fat and loculated fluid which appears to be contiguous with the right side of the bladder, possibly a portion of the bladder or bladder diverticulum that has herniated into the right inguinal canal. 3.8 x 3 cm fat containing umbilical hernia. Fatty liver. Small hiatal hernia. Mason Mathis MD Differential Diagnosis Peptic ulcer disease versus GI bleed versus gastritis versus gastroenteritis versus pancreatitis versus gallbladder disease Narrative Course 51-year-old male that presents to the ED for evaluation of epigastric pain and vomiting blood. Patient was properly examined and was found to have signs and symptoms consistent with what appears to be gastritis versus peptic ulcer disease. Patient did have some bleeding. No bleeding at this time. He has not vomited here. Labs and imaging ordered. Medications were given. Labs and imaging showed what appears to be a right-sided inguinal hernia with bladder involvement. This appears to be chronic. Patient also has been going on for about 5 years. He has no pain in the area appears to be no distress. Most of the pain is on the epigastric area. My attending Dr. Jimenes evaluated the patient with me and agrees with plan. This time patient will be sent home with prescriptions for Carafate, ranitidine, Protonix as well as lisinopril refill. Patient was told to follow with general surgeon. I made him and that a referral to the general surgeon as the hernia will require surgical fixation secondary to the involvement of nodules bowel but also bladder. Patient was told to follow with outpatient clinic for further management of his symptoms. Patient agrees with plan. See ED worsening symptoms. Diagnosis Primary Impression: Gastritis Qualified Code: K29.01 - Acute gastritis with hemorrhage, unspecified gastritis type Additional Impression: Inguinal hernia Qualified Code: K40.91 - Unilateral recurrent inguinal hernia without obstruction or gangrene Referrals: [facility] Patient Instructions: General Instructions, Narcotic given in the ED Additional Instructions: Take medications as prescribed. Follow with general surgery. Follow with clinic. See ED for worsening symptoms. Avoid any acidic foods including caffeine, alcohol, fast food or fried food until 100% back to normal. Med/Other Pt SpecificInfo: Prescription(s) given Scripts Ranitidine 150 Mg [id number] Mg PO BID #30 TAB Ref 0 Prov:Lexy Jimenes MD 12/29/16 Pantoprazole (Protonix)40 Mg Tab40 Mg PO DAILY #30 TAB Ref 0 Prov:Lexy Jimenes MD 12/29/16 Lisinopril 20 Mg Tab20 Mg PO BID #30 TAB Ref 0 Prov:Lexy Jimenes MD 12/29/16 Disposition: 01 DISCHARGE HOME Condition: Stable Trae Selby Dec 29, 2016 12:02
[2016-12-29 12:03] LABS: AUTOMATED NEUTROPHIL # 5.7 TH/MM3 (1.8-7.7); BASOPHIL % 0.3 % (0.0-2.0); EOSINOPHIL # 0.1 TH/MM3 (0-0.4); EOSINOPHIL % 1.5 % (0.0-4.0); HEMATOCRIT 40.4 % (39.0-51.0); HEMO FLAGS DIFF FINAL; LYMPH % 21.3 % (9.0-44.0); LYMPHOCYTE # 1.8 TH/MM3 (1.0-4.8); MEAN CELL VOLUME 92.6 FL (80.0-100.0); MEAN CORPUSCULAR HGB CONC 34.6 % (32.0-36.0); MONO % 7.4 % (0.0-8.0); NEUT % 69.5 % (16.0-70.0); PLATELET COUNT 323 TH/MM3 (150-450); RED BLOOD COUNT 4.37 MIL/MM3 (4.50-5.90); RED CELL DISTRIBUTION WIDTH 14.4 % (11.6-17.2); WHITE BLOOD COUNT 8.3 TH/MM3 (4.0-11.0)
[2016-12-29 12:08] LABS: APTT (PATIENT) 25.2 SEC (24.3-30.1); PROTHROMBIN TIME - PATIENT 11.2 SEC (9.8-11.6)
[2016-12-29 12:11] LABS: ALKALINE PHOSPHATASE 46 U/L (45-117); TOTAL BILIRUBIN ADULT 0.3 MG/DL (0.2-1.0)
[2016-12-29 12:16] LABS: ALT (GPT) 27 U/L (12-78); ANION GAP 9 MEQ/L (5-15); AST (GOT) 26 U/L (15-37); BICARBONATE 23.2 MEQ/L (21.0-32.0); BLOOD UREA NITROGEN 11 MG/DL (7-18); CHLORIDE 107 MEQ/L (98-107); GLOMERULAR FILTRATION RATE 78 ML/MIN (>89); POTASSIUM 4.2 MEQ/L (3.5-5.1); SODIUM (NA) 139 MEQ/L (136-145)
[2016-12-29] MEDS ORDERED: IOHEXOL 350 MG/ML 10 ML VIAL (for RAD DIAG) IV ONE (12:43)
--- NOTE | 2016-12-29 12:51 | RADRPT ---
EXAM DATE/TIME: 12/29/2016 12:29 [facility] COMPARISON: No previous studies available for comparison. INDICATIONS : Abdomen pain. IV CONTRAST: 100 cc Omnipaque 350 (iohexol) IV ORAL CONTRAST: No oral contrast ingested. RADIATION DOSE: 13.00 CTDIvol (mGy) MEDICAL HISTORY : Hypertension. SURGICAL HISTORY : None. ENCOUNTER: Initial ACUITY: 1 day PAIN SCALE: 4/10 LOCATION: Bilateral abdomen TECHNIQUE: Volumetric scanning of the abdomen and pelvis was performed. Using automated exposure control and ad justment of the mA and/or kV according to patient size, radiation dose was kept as low as reasonably achievable to obtain optimal diagnostic quality images. DICOM format image data is available electro nically for review and comparison. FINDINGS: Lung bases are clear. No acute bony abnormalities. Mild degenerative disc disease in the spine. There is a small hiatal hernia. Mild diffuse fatty infiltration of the liver. Spleen, kidneys and [place] unremarkable. Adrenal glands are mildly enlarged but likely benign. No calcified gallstones or biliary ductal dilatation. There is a fat containing umbilical hernia measuring about 3.8 x 3 cm. There is a right-sided inguinal hernia containing fat and loculated fluid measuring up to 9.6 x 8.1 c m. There is no herniation of bowel. A small portion of the right rehana-lateral aspect of the bladder does extend into the right inguinal hernia and it is possible that the fluid represents a bladder di verticulum or possibly some portion of bladder. There is no bowel obstruction. No free air or free fluid. CONCLUSION: 1. 9.6 x 8.1 cm right-sided inguinal hernia containing fat and loculated fluid which appears to be co ntiguous with the right side of the bladder, possibly a portion of the bladder or bladder diverticulu m that has herniated into the right inguinal canal. 3.8 x 3 cm fat containing umbilical hernia. Fatty liver. Small hiatal hernia. Mason Mathis MD on December 29, 2016 at 12:44 Board Certified Radiologist. This report was verified electronically.
[2016-12-29] MEDS ORDERED: PROT40TA PO (13:08)
[2016-12-29] MEDS ORDERED: LISI-515 PO (13:08)
[2016-12-29] MEDS ORDERED: RANI150T PO (13:08)
[2016-12-29] MEDS ORDERED: CARA1TAB6 PO (13:14)
[2016-12-29 13:32] VITALS: BP 179/97
--- NOTE | 2016-12-29 17:36 | PD ---
Data Data Last Documented VS Vital Signs Date Time Temp Pulse Resp B/P Pulse Ox O2 Delivery O2 Flow Rate FiO2 12/29/16 13:32 88 18 179/97 99 12/29/16 11:10 97.9 Room Air Orders Complete Blood Count With Diff (12/29/16 11:26) Comprehensive Metabolic Panel (12/29/16 11:26) Lipase (12/29/16 11:26) Prothrombin Time / Inr (Pt) (12/29/16 11:26) Act Partial Throm Time (Ptt) (12/29/16 11:26) Urinalysis - C+S If Indicated (12/29/16 11:26) Ct Abd/Pel W Iv Contrast(Rout) (12/29/16 11:26) Iv Access Insert/Monitor (12/29/16 11:26) Ecg Monitoring (12/29/16 11:26) Oximetry (12/29/16 11:26) Morphine Inj (Morphine Inj) (12/29/16 11:30) Ondansetron Inj (Zofran Inj) (12/29/16 11:30) Pantoprazole Inj (Protonix Inj) (12/29/16 11:30) Sodium Chlor 0.9% 1000 Ml Inj (Ns 1000 M (12/29/16 11:26) Famotidine Inj (Pepcid Inj) (12/29/16 11:30) Iohexol 350 Inj (Omnipaque 350 Inj) (12/29/16 12:43) Morphine Inj (Morphine Inj) (12/29/16 13:15) Mandatory Outpatient Referral (12/29/16 13:07) Labs Laboratory Tests Test 12/29/16 11:45 White Blood Count 8.3 TH/MM3 Red Blood Count 4.37 MIL/MM3 Hemoglobin 14.0 GM/DL Hematocrit 40.4 % Mean Corpuscular Volume 92.6 FL Mean Corpuscular Hemoglobin 32.0 PG Mean Corpuscular Hemoglobin 34.6 % Concent Red Cell Distribution Width 14.4 % Platelet Count 323 TH/MM3 Mean Platelet Volume 6.7 FL Neutrophils (%) (Auto) 69.5 % Lymphocytes (%) (Auto) 21.3 % Monocytes (%) (Auto) 7.4 % Eosinophils (%) (Auto) 1.5 % Basophils (%) (Auto) 0.3 % Neutrophils # (Auto) 5.7 TH/MM3 Lymphocytes # (Auto) 1.8 TH/MM3 Monocytes # (Auto) 0.6 TH/MM3 Eosinophils # (Auto) 0.1 TH/MM3 Basophils # (Auto) 0.0 TH/MM3 CBC Comment DIFF FINAL Differential Comment Prothrombin Time 11.2 SEC Prothromb Time International 1.0 RATIO Ratio Activated Partial 25.2 SEC Thromboplast Time Sodium Level 139 MEQ/L Potassium Level 4.2 MEQ/L Chloride Level 107 MEQ/L Carbon Dioxide Level 23.2 MEQ/L Anion Gap 9 MEQ/L Blood Urea Nitrogen 11 MG/DL Creatinine 1.19 MG/DL Estimat Glomerular Filtration 78 ML/MIN Rate Random Glucose 75 MG/DL Calcium Level 8.5 MG/DL Total Bilirubin 0.3 MG/DL Aspartate Amino Transf 26 U/L (AST/SGOT) Alanine Aminotransferase 27 U/L (ALT/SGPT) Alkaline Phosphatase 46 U/L Total Protein 7.5 GM/DL Albumin 3.5 GM/DL Lipase 133 U/L [facility]DM Supervised Visit with RAMIRO: Yes Narrative Course The history, exam, and medical decision-making in the associated midlevel provider note were completed with my assistance. I reviewed and agree with the findings presented. I attest that I had a [id number] encounter with the patient on the same day, and personally performed and documented my assessment and findings in the medical record. *My assessment and Findings: This is a 51-year-old male who presents to the emergency department with epigastric discomfort. His pain sounds typical of peptic ulcer disease or gastritis. He is tender only over the epigastrium. He is very well-appearing and labs are reassuring. CT abdomen and pelvis demonstrates a fairly large inguinal hernia with evidence of bladder containing tonight. He says he's had this hernia for years and it doesn't bother him. I don't think is related to his symptoms today. Patient will be discharged home with follow-up to primary care and ultimately general surgery. Diagnosis Primary Impression: Gastritis Qualified Code: K29.01 - Acute gastritis with hemorrhage, unspecified gastritis type Additional Impression: Inguinal hernia Qualified Code: K40.91 - Unilateral recurrent inguinal hernia without obstruction or gangrene Referrals: [facility] Patient Instructions: General Instructions, Narcotic given in the ED, Gastritis (ED), Inguinal Hernia (ED) Departure Forms: Tests/Procedures Additional Instruction: Take medications as prescribed. Follow with general surgery. Follow with clinic. See ED for worsening symptoms. Avoid any acidic foods including caffeine, alcohol, fast food or fried food until 100% back to normal. Scripts Sucralfate (Carafate)1 Gm Tab1 Gm PO QID #30 TAB Ref 0 On empty stomach Prov:Lexy Jimenes MD 12/29/16 Ranitidine 150 Mg [id number] Mg PO BID #30 TAB Ref 0 Prov:Lexy Jimenes MD 12/29/16 Pantoprazole (Protonix)40 Mg Tab40 Mg PO DAILY #30 TAB Ref 0 Prov:Lexy Jimenes MD 12/29/16 Lisinopril 20 Mg Tab20 Mg PO BID #30 TAB Ref 0 Prov:Lexy Jimenes MD 12/29/16 Disposition: 01 DISCHARGE HOME Condition: Stable Lexy Jimenes MD Dec 29, 2016 17:36
== END 2016-12-29 13:35 | disposition home or self-care (01) ==
LOC: NEPE 11:09
DX: K29.01 Acute gastritis with bleeding (principal); K40.91 Unilateral inguinal hernia, without obstruction or gangrene, recurrent
CPT/HCPCS: 74177; 80053; 83690; 85025; 85610; 85730; 96361; 96374; 96375; 99285; C9113; J2270; J2405; J7030; Q9967

== ENCOUNTER 2017-04-21 22:26 | Emergency (ER) | payer SELFPAY ==
[~2017-04-21] VITALS: Ht 167.6 cm; Wt 95.0 kg
[~2017-04-21 22:26] MED LIST changes: +CARA1TAB6 PO; +PROT40TA PO; +RANI150T PO
[2017-04-21 22:28] VITALS: BP 201/111; PULSE 64; RESP 16; TEMP 98.6; O2SAT 95
--- NOTE | 2017-04-21 23:23 | PD ---
HPI Chief Complaint: Abdominal Pain Time Seen by Provider: 23:23 Travel History International Travel<30 days: No Contact w/Intl Traveler<30days: No Traveled to known affect area: No History of Present Illness HPI 51-year-old male came to the emergency room with history of diarrhea and abdominal cramps since last night. Patient thinks that it's because of something he ate. Although his ate the same food and she does not have the similar symptoms. No history of known sick contacts. Patient says that he has had 5-6 episodes of watery stool that are nonbloody. No history of nausea vomiting. He looks uncomfortable. His last diarrhea was about half an hour ago he said. No recent antibiotic course. No recent hospitalization. Vital signs were otherwise stable. He pointed to his entire abdomen when asked for the location of the pain. Patient says the cramps seem to get worse when he has to have a bowel movement and after the bowel movement they feel little better. No history of fever or chills. PFSH Past Medical History Narrative Medical List of his past medical, surgical, social and family history is reviewed from the nursing note. Hx Anticoagulant Therapy: No Asthma: Yes Cardiovascular Problems: No Chemotherapy: No Cerebrovascular Accident: No Diabetes: No Diminished Hearing: No Hypertension: Yes Musculoskeletal: No Neurologic: Yes Respiratory: No Immunizations Current: No Migraines: Yes Tetanus Vaccination: Unknown Influenza Vaccination: No Social History Alcohol Use: Yes ("SOMETIMES") Tobacco Use: No Substance Use: No Allergies-Medications (Allergen,Severity, Reaction): Coded Allergies: No Known Allergies (Verified , 08/06/16) Comments No known drug allergies. Reported Meds & Prescriptions Reported Meds & Active Scripts Active Lomotil (Diphenoxylate-Atropine) 2.5-0.025 Mg Tab 1 Tab PO Q6H PRN Carafate (Sucralfate) 1 Gm Tab 1 Gm PO QID On empty stomach Ranitidine (Ranitidine HCl) 150 Mg Tab 150 Mg PO BID Protonix (Pantoprazole Sodium) 40 Mg Tab 40 Mg PO DAILY Lisinopril 20 Mg Tab 20 Mg PO BID Reported Proventil Hfa 6.7 GM Inh (Albuterol Sulfate) 90 Mcg/Act Aer 2 Puff INH Q4-6H PRN Aspirin 81 Mg Chew 81 Mg CHEW DAILY Narrative Medication List of his home medications reviewed from the nursing note. Review of Systems Except as stated in HPI: all other systems reviewed are Neg Gastrointestinal: Positive: Diarrhea, Abdominal Pain Physical Exam Narrative GENERAL: Awake, alert, moderate distress SKIN: Focused skin assessment warm/dry. HEAD: Atraumatic. Normocephalic. EYES: Pupils equal and round. No scleral icterus. No injection or drainage. ENT: No nasal bleeding or discharge. Mucous membranes pink and moist. NECK: Trachea midline. No JVD. CARDIOVASCULAR: Regular rate and rhythm. No murmur appreciated. RESPIRATORY: No accessory muscle use. Clear to auscultation. Breath sounds equal bilaterally. GASTROINTESTINAL: Abdomen generalized tenderness, distended, increased bowel sound. Hepatic and splenic margins not palpable. MUSCULOSKELETAL: No obvious deformities. No clubbing. No cyanosis. No edema. NEUROLOGICAL: Awake and alert. No obvious cranial nerve deficits. Motor grossly within normal limits. Normal speech. PSYCHIATRIC: Appropriate mood and affect; insight and judgment normal. Data Data Last Documented VS Orders Orders Complete Blood Count With Diff (04/21/17 23:32) Comprehensive Metabolic Panel (04/21/17 23:32) Ct Abd/Pel W/O Iv Contrast (04/21/17 23:32) Iv Access Insert/Monitor (04/21/17 23:32) Ecg Monitoring (04/21/17 23:32) Oximetry (04/21/17 23:32) Sodium Chlor 0.9% 1000 Ml Inj (Ns 1000 M (04/21/17 23:32) Sodium Chloride 0.9% Flush (Ns Flush) (04/21/17 23:45) Sodium Chlor 0.9% 1000 Ml Inj (Ns 1000 M (04/22/17 01:00) Diphenoxylate/Atropine Tab (Lomotil Tab) (04/22/17 01:00) Ed Discharge Order (04/22/17 01:05) Labs Laboratory Tests Test 04/21/17 23:45 White Blood Count 10.4 TH/MM3 Red Blood Count 4.69 MIL/MM3 Hemoglobin 15.4 GM/DL Hematocrit 44.7 % Mean Corpuscular Volume 95.3 FL Mean Corpuscular Hemoglobin 32.7 PG Mean Corpuscular Hemoglobin Concent 34.4 % Red Cell Distribution Width 14.7 % Platelet Count 301 TH/MM3 Mean Platelet Volume 7.5 FL Neutrophils (%) (Auto) 52.5 % Lymphocytes (%) (Auto) 19.3 % Monocytes (%) (Auto) 8.0 % Eosinophils (%) (Auto) 19.4 % Basophils (%) (Auto) 0.8 % Neutrophils # (Auto) 5.5 TH/MM3 Lymphocytes # (Auto) 2.0 TH/MM3 Monocytes # (Auto) 0.8 TH/MM3 Eosinophils # (Auto) 2.0 TH/MM3 Basophils # (Auto) 0.1 TH/MM3 CBC Comment AUTO DIFF Differential Comment AUTO DIFF CONFIRMED Blood Urea Nitrogen 13 MG/DL Creatinine 1.44 MG/DL Random Glucose 80 MG/DL Total Protein 7.7 GM/DL Albumin 3.7 GM/DL Calcium Level 8.8 MG/DL Alkaline Phosphatase 42 U/L Aspartate Amino Transf (AST/SGOT) 21 U/L Alanine Aminotransferase (ALT/SGPT) 30 U/L Total Bilirubin 0.3 MG/DL Sodium Level 139 MEQ/L Potassium Level 3.6 MEQ/L Chloride Level 103 MEQ/L Carbon Dioxide Level 31.2 MEQ/L Anion Gap 5 MEQ/L Estimat Glomerular Filtration Rate 62 ML/MIN [facility] Medical Decision Making Medical Screen Exam Complete: Yes Emergency Medical Condition: Yes Medical Record Reviewed: Yes Differential Diagnosis Acute gastritis, colitis, dehydration Narrative Course 1 AM blood test results of back and within acceptable limits. CT scan shows enteritis with thickened small bowel jimenez. There is incidental finding of hernia but no obstruction. Patient was given IV fluid bolus and pain medication. I have ordered Lomotil and he will be discharged home. Procedures EKG Prior to Arrival: No Diagnosis Primary Impression: Enteritis Additional Impression: Diarrhea Qualified Codes: R19.7 - Diarrhea, unspecified Referrals: Primary Care Physician 3 days Additional Instructions: Please return to the ER if the condition worsens or any other new concerns. Take the medication as per the prescription direction. Eat Devon diet where he stands for banana, R for rice, A for applesauce, T for toast and T for tea. Follow up with her primary care. Med/Other Pt SpecificInfo: Prescription(s) given Scripts Diphenoxylate-Atropine (Lomotil) 2.5-0.025 Mg Tab 1 TAB PO Q6H Y for DIARRHEA, #4 TAB 0 Refills Prov: Candy Mitchell MD 04/22/17 Disposition: 01 DISCHARGE HOME Condition: Stable Candy Mitchell MD Apr 21, 2017 23:23
[2017-04-21] MEDS ORDERED: SODIUM CHLOR 0.9% 1000 ML INJ 1,000 ML IV SCH (23:32)
[2017-04-21 23:40] VITALS: BP 179/94; PULSE 66; RESP 18; O2SAT 98
[2017-04-21] MEDS ORDERED: SODIUM CHLORIDE 0.9% FLUSH 10 ML FLUSH IV FLUSH PRN (23:45)
--- NOTE | 2017-04-22 00:12 | RADRPT ---
EXAM DATE/TIME: 04/21/2017 23:51 [facility] COMPARISON: No previous studies available for comparison. INDICATIONS : Abdomen pain. ORAL CONTRAST: No oral contrast ingested. RADIATION DOSE: 20.28 CTDIvol (mGy) MEDICAL HISTORY : Hypertension. Asthma SURGICAL HISTORY : None. ENCOUNTER: Initial ACUITY: 1 day PAIN SCALE: 6/10 LOCATION: Bilateral abdomen TECHNIQUE: Volumetric scanning of the abdomen and pelvis was performed. Using automated exposure control and ad justment of the mA and/or kV according to patient size, radiation dose was kept as low as reasonably achievable to obtain optimal diagnostic quality images. DICOM format image data is available electro nically for review and comparison. FINDINGS: LOWER LUNGS: The visualized lower lungs are clear. LIVER: Homogeneous density without lesion. There is no dilation of the biliary tree. No calcified gallston es. SPLEEN: Normal size without lesion. PANCREAS: Within normal limits. KIDNEYS: Normal in size and shape. There is no mass, stone, or hydronephrosis. ADRENAL GLANDS: Mildly prominent greater on the left but unchanged. VASCULAR: There is no aortic aneurysm. BOWEL/MESENTERY: There is some wall thickening involving several small bowel loops in the midabdomen with some slight inflammatory changes. There is no free intraperitoneal air or fluid. ABDOMINAL WALL: Fat-containing umbilical hernia appears unchanged. RETROPERITONEUM: There is no lymphadenopathy. BLADDER: No wall thickening or mass. REPRODUCTIVE: Within normal limits. INGUINAL: Right inguinal hernia contains urinary bladder and peritoneal fat/minimal fluid. Fat containing left inguinal hernia also seen. There is no lymphadenopathy on the left. MUSCULOSKELETAL: Within normal limits for patient age. CONCLUSION: 1. Wall thickening with inflammatory changes involving distal small bowel loops. No obstruction seen. This could be infectious or inflammatory. 2. Stable appearance of the umbilical fat-containing hernia. 3. Large right inguinal hernia containing urinary bladder, peritoneal fat and minimal fluid. 4. Fat-containing left inguinal hernia. Kofi Cassidy MD on April 22, 2017 at 0:04 Board Certified Radiologist. This report was verified electronically.
[2017-04-22 00:21] LABS: AUTOMATED NEUTROPHIL # 5.5 TH/MM3 (1.8-7.7); BASOPHIL # 0.1 TH/MM3 (0-0.2); BASOPHIL % 0.8 % (0.0-2.0); EOSINOPHIL % 19.4 % (0.0-4.0); HEMATOCRIT 44.7 % (39.0-51.0); HEMOGLOBIN 15.4 GM/DL (13.0-17.0); LYMPH % 19.3 % (9.0-44.0); MEAN CELL VOLUME 95.3 FL (80.0-100.0); MEAN CORPUSCULAR HEMOGLOBIN 32.7 PG (27.0-34.0); MEAN CORPUSCULAR HGB CONC 34.4 % (32.0-36.0); MEAN PLATELET VOLUME 7.5 FL (7.0-11.0); MONOCYTE # 0.8 TH/MM3 (0-0.9); NEUT % 52.5 % (16.0-70.0); PLATELET COUNT 301 TH/MM3 (150-450); RED BLOOD COUNT 4.69 MIL/MM3 (4.50-5.90); RED CELL DISTRIBUTION WIDTH 14.7 % (11.6-17.2); WHITE BLOOD COUNT 10.4 TH/MM3 (4.0-11.0)
[2017-04-22 00:38] LABS: ALBUMIN 3.7 GM/DL (3.4-5.0); ALT (GPT) 30 U/L (12-78); AST (GOT) 21 U/L (15-37); BICARBONATE 31.2 MEQ/L (21.0-32.0); BLOOD UREA NITROGEN 13 MG/DL (7-18); CALCIUM 8.8 MG/DL (8.5-10.1); CHLORIDE 103 MEQ/L (98-107); CREATININE 1.44 MG/DL (0.60-1.30); GLOMERULAR FILTRATION RATE 62 ML/MIN (>89); GLUCOSE,RANDOM 80 MG/DL (74-106); SODIUM (NA) 139 MEQ/L (136-145)
[2017-04-22 00:39] LABS: ALKALINE PHOSPHATASE 42 U/L (45-117); TOTAL BILIRUBIN ADULT 0.3 MG/DL (0.2-1.0); TOTAL PROTEIN 7.7 GM/DL (6.4-8.2)
[2017-04-22] MEDS ORDERED: DIPHENOXYLATE/ATROPINE 2.5 MG/0.025 MG TAB PO ONE (01:00)
[2017-04-22] MEDS ORDERED: SODIUM CHLOR 0.9% 1000 ML INJ 1,000 ML IV ONE (01:00)
[2017-04-22] MEDS ORDERED: LOMO2.5T PO (01:02)
== END 2017-04-22 02:04 | disposition home or self-care (01) ==
LOC: NEPC 22:26
DX: K52.9 Noninfective gastroenteritis and colitis, unspecified (principal); R19.7 Diarrhea, unspecified; J45.909 Unspecified asthma, uncomplicated; I10 Essential (primary) hypertension
CPT/HCPCS: 74176; 80053; 85025; 96360; 96361; 99284; J7030

== ENCOUNTER 2017-11-05 18:08 | Inpatient (IN) | payer SELFPAY ==
[~2017-11-05] VITALS: Ht 167.6 cm; Wt 95.0 kg
[~2017-11-05 18:08] MED LIST changes: +ASPI-516 CHEW; -ASPI81CH CHEW; +LOMO2.5T PO
[2017-11-05 18:30] VITALS: BP 162/94; PULSE 93; RESP 16; TEMP 98.3; O2SAT 96
[2017-11-05] MEDS ORDERED: SODIUM CHLOR 0.9% 1000 ML INJ 1,000 ML IV ONE ×2 (21:00→22:15)
--- NOTE | 2017-11-05 21:21 | PD ---
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 Patient states that he felt he was consuming a sufficient amount of water. 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 Since yesterday he has had intermittent cramping all over. There is no focality. He denies any fever chills. No nausea vomiting. No abdominal pain. No urinary symptoms. No unusual dark coloration of the urine. He denies any statin use. He does take medicine for blood pressure. [facility] Past Medical History Narrative Medical Asthma, hypertension Hx Anticoagulant Therapy: No Asthma: Yes Cardiovascular Problems: No Chemotherapy: No Cerebrovascular Accident: No Diabetes: No Diminished Hearing: No Hypertension: Yes Musculoskeletal: No Neurologic: Yes Respiratory: No Immunizations Current: No Migraines: Yes Tetanus Vaccination: < 5 Years Past Surgical History Surgical History: No Previous Surgery Social History Alcohol Use: Yes ("SOMETIMES") Tobacco Use: No Substance Use: No Allergies-Medications (Allergen,Severity, Reaction): Coded Allergies: No Known Allergies (Verified , 08/06/16) Reported Meds & Prescriptions Reported Meds & Active Scripts Active Lisinopril 20 Mg Tab 20 Mg PO BID Review of Systems General / Constitutional: No: Fever Eyes: No: Visual changes HENT: No: Headaches Cardiovascular: No: Chest Pain or Discomfort Respiratory: No: Shortness of Breath Gastrointestinal: No: Abdominal Pain Genitourinary: No: Dysuria Musculoskeletal: Positive: Myalgias, No: Pain Skin: No Rash Neurologic: No: Weakness Psychiatric: No: Depression Endocrine: No: Polydipsia Hematologic/Lymphatic: No: Easy Bruising Physical Exam Narrative GENERAL: Well-developed, well-nourished in no apparent distress. Nontoxic appearing. HEAD: Normocephalic, atraumatic. EYES: Pupils equal round and reactive. Extraocular motions intact. No scleral icterus. No injection or drainage. ENT: Nose clear. Throat without erythema, tonsillar hypertrophy or exudate. Uvula midline. Airway patent. NECK: Trachea midline. Supple, nontender, moves head freely. No central bony tenderness or spasm. CARDIOVASCULAR: Regular rate and rhythm without murmurs, gallops, or rubs. RESPIRATORY: Clear to auscultation. Breath sounds equal bilaterally. No wheezes , rales, or rhonchi. GASTROINTESTINAL: Abdomen soft, non-tender, nondistended. No hepato-splenomegaly , or palpable masses. No guarding. EXTREMITIES: No clubbing, cyanosis, or edema. No joint tenderness. BACK: Nontender without deformity. No flank tenderness. NEUROLOGICAL: Awake, alert and oriented x 3 .Cranial nerves grossly intact. Motor and sensory grossly within normal limits. Normal speech. Data Data Last Documented VS Vital Signs Date Time Temp Pulse Resp B/P (MAP) Pulse Ox O2 Delivery O2 Flow Rate FiO2 11/05/17 23:37 98.2 75 17 167/84 (111) 98 Room Air Orders Orders Basic Metabolic Panel (Bmp) (11/05/17 20:54) Creatine Kinase (Cpk) (11/05/17 20:54) Ua Includes Microscopic (11/05/17 20:54) Iv Access Insert/Monitor (11/05/17 20:54) Sodium Chlor 0.9% 1000 Ml Inj (Ns 1000 M (11/05/17 21:00) Sodium Chlor 0.9% 1000 Ml Inj (Ns 1000 M (11/05/17 22:15) Electrocardiogram (11/06/17 00:13) Complete Blood Count With Diff (11/06/17 00:13) CKMB (11/05/17 23:24) CKMB% (11/05/17 23:24) Sodium Chlor 0.9% 1000 Ml Inj (Ns 1000 M (11/06/17 01:00) Admit Order (Ed Use Only) (11/06/17 ) Vital Signs (Adult) Q4H (11/06/17 01:04) Diet Renal (11/06/17 Breakfast) Activity Oob With Assistance (11/06/17 01:04) Notify Dr: Other (11/06/17 01:04) Labs Laboratory Tests Test 11/05/17 21:16 11/05/17 23:24 11/06/17 00:05 Urine Color YELLOW Urine Turbidity HAZY Urine pH 5.5 Urine Specific [place] 1.036 Urine Protein 100 mg/dL Urine Glucose (UA) NEG mg/dL Urine Ketones TRACE mg/dL Urine Occult Blood SMALL Urine Nitrite NEG Urine Bilirubin NEG Urine Urobilinogen 2.0 MG/DL Urine Leukocyte Esterase NEG Urine RBC 2 /hpf Urine WBC LESS THAN 1 /hpf Urine Squamous Epithelial Cells 1 /hpf Urine Hyaline Casts 34 /lpf Urine Mucus MANY /lpf Blood Urea Nitrogen 32 MG/DL Creatinine 2.46 MG/DL Random Glucose 97 MG/DL Calcium Level 9.6 MG/DL Sodium Level 138 MEQ/L Potassium Level 3.9 MEQ/L Chloride Level 104 MEQ/L Carbon Dioxide Level 23.9 MEQ/L Anion Gap 10 MEQ/L Estimat Glomerular Filtration Rate 33 ML/MIN Total Creatine Kinase 2097 U/L Creatine Kinase MB 6.8 NG/ML Creatine Kinase MB % 0.3 % White Blood Count 7.8 TH/MM3 Red Blood Count 4.94 MIL/MM3 Hemoglobin 16.0 GM/DL Hematocrit 47.2 % Mean Corpuscular Volume 95.6 FL Mean Corpuscular Hemoglobin 32.5 PG Mean Corpuscular Hemoglobin Concent 34.0 % Red Cell Distribution Width 15.2 % Platelet Count 376 TH/MM3 Mean Platelet Volume 7.7 FL Neutrophils (%) (Auto) 67.4 % Lymphocytes (%) (Auto) 21.7 % Monocytes (%) (Auto) 10.5 % Eosinophils (%) (Auto) 0.1 % Basophils (%) (Auto) 0.3 % Neutrophils # (Auto) 5.3 TH/MM3 Lymphocytes # (Auto) 1.7 TH/MM3 Monocytes # (Auto) 0.8 TH/MM3 Eosinophils # (Auto) 0.0 TH/MM3 Basophils # (Auto) 0.0 TH/MM3 CBC Comment DIFF FINAL Differential Comment MDM Medical Decision Making Medical Screen Exam Complete: Yes Emergency Medical Condition: Yes Medical Record Reviewed: Yes Interpretation(s) CBC & BMP Diagram 11/05/17 23:24 Calcium Level 9.6 EKG: Normal sinus rhythm with a ventricular rate of 79. Normal intervals. LVH by voltage, diffuse T-wave inversion without ST elevation. Normal axis. Differential Diagnosis Differential diagnosis: Dehydration, electrolyte abnormality, rhabdomyolysis Narrative Course IV access is obtained. Patient was given a liter bolus of saline. Routine laboratory tests chemistry, CPK and UA. The patient is given a second liter bolus of saline. His EKG shows LVH and ST inversions diffusely. This is compared to prior EKG which is unchanged. Patient's chemistry shows acute renal injury. Patient will receive 1/3 L. He will necessitate admission. This is acute kidney injury. I discussed the case with Dr. Pal who is agreed to admit the patient to observation. Diagnosis Primary Impression: BOAZ (acute kidney injury) Admitting Information Admitting Physician Requests: Observation Condition: Stable Mason Rangel November 05, 2017 21:21
[2017-11-05 21:38] LABS: BLOOD, URINE SMALL (NEG); GLUCOSE,URINE NEG (NEG); HYALINE CAST, URINE 34 /lpf (RARE); KETONE, URINE TRACE mg/dL (NEG); MUCUS URINE MANY /lpf (OCC); NITRITE,URINE NEG (NEG); PH, URINE 5.5 (5.0-8.5); SQUAMOUS EPITHELIAL CELL URINE 1 /hpf (0-5); URINE COLOR YELLOW (YELLW/STRAW); URINE LEUKOCYTE ESTERASE NEG (NEG)
[2017-11-05 21:44] LABS: BILIRUBIN, URINE NEG (NEG)
[2017-11-05 23:37] VITALS: BP 167/84; PULSE 75; RESP 17; TEMP 98.2; O2SAT 98
[2017-11-05 23:59] LABS: BICARBONATE 23.9 MEQ/L (21.0-32.0); CALCIUM 9.6 MG/DL (8.5-10.1); CREATININE 2.46 MG/DL (0.60-1.30)
[2017-11-06] VITALS (9 sets, daily range): BP systolic 138–184; BP diastolic 68–101; PULSE 59–77; RESP 18–20; TEMP 97.5–98.8; O2SAT 97–100
--- NOTE | 2017-11-06 00:25 | PD ---
Physical Exam Narrative I, Dr. Parham, have reviewed the advance practice practitioner's documentation and am in agreement, met with the patient face to face, made the diagnosis, and the medical decision making was done by me. *My assessment and Findings: Rhabdomyolysis vs. electrolyte abnormality vs. dehydration. 52yo M with PMH of HTN here with c/o cramping that is generalized for 2 days. 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 UA showed 34 hyaline casts. Ketone trace. WBC less than 1. BMP showed elevated creatinine at 2.46. This is double his baseline. CPK elevated at 2097. NS IVF x2 given. Will give NS IVF. Pt will be admitted for BOAZ. Data Data Last Documented VS Vital Signs Date Time Temp Pulse Resp B/P (MAP) Pulse Ox O2 Delivery O2 Flow Rate FiO2 11/05/17 23:37 98.2 75 17 167/84 (111) 98 Room Air Orders Orders Basic Metabolic Panel (Bmp) (11/05/17 20:54) Creatine Kinase (Cpk) (11/05/17 20:54) Ua Includes Microscopic (11/05/17 20:54) Iv Access Insert/Monitor (11/05/17 20:54) Sodium Chlor 0.9% 1000 Ml Inj (Ns 1000 M (11/05/17 21:00) Sodium Chlor 0.9% 1000 Ml Inj (Ns 1000 M (11/05/17 22:15) Electrocardiogram (11/06/17 00:13) Complete Blood Count With Diff (11/06/17 00:13) CKMB (11/05/17 23:24) CKMB% (11/05/17 23:24) Sodium Chlor 0.9% 1000 Ml Inj (Ns 1000 M (11/06/17 01:00) Labs Laboratory Tests Test 11/05/17 21:16 11/05/17 23:24 11/06/17 00:05 Urine Color YELLOW Urine Turbidity HAZY Urine pH 5.5 Urine Specific [place] 1.036 Urine Protein 100 mg/dL Urine Glucose (UA) NEG mg/dL Urine Ketones TRACE mg/dL Urine Occult Blood SMALL Urine Nitrite NEG Urine Bilirubin NEG Urine Urobilinogen 2.0 MG/DL Urine Leukocyte Esterase NEG Urine RBC 2 /hpf Urine WBC LESS THAN 1 /hpf Urine Squamous Epithelial Cells 1 /hpf Urine Hyaline Casts 34 /lpf Urine Mucus MANY /lpf Blood Urea Nitrogen 32 MG/DL Creatinine 2.46 MG/DL Random Glucose 97 MG/DL Calcium Level 9.6 MG/DL Sodium Level 138 MEQ/L Potassium Level 3.9 MEQ/L Chloride Level 104 MEQ/L Carbon Dioxide Level 23.9 MEQ/L Anion Gap 10 MEQ/L Estimat Glomerular Filtration Rate 33 ML/MIN Total Creatine Kinase 2097 U/L Creatine Kinase MB 6.8 NG/ML Creatine Kinase MB % 0.3 % White Blood Count 7.8 TH/MM3 Red Blood Count 4.94 MIL/MM3 Hemoglobin 16.0 GM/DL Hematocrit 47.2 % Mean Corpuscular Volume 95.6 FL Mean Corpuscular Hemoglobin 32.5 PG Mean Corpuscular Hemoglobin Concent 34.0 % Red Cell Distribution Width 15.2 % Platelet Count 376 TH/MM3 Mean Platelet Volume 7.7 FL Neutrophils (%) (Auto) 67.4 % Lymphocytes (%) (Auto) 21.7 % Monocytes (%) (Auto) 10.5 % Eosinophils (%) (Auto) 0.1 % Basophils (%) (Auto) 0.3 % Neutrophils # (Auto) 5.3 TH/MM3 Lymphocytes # (Auto) 1.7 TH/MM3 Monocytes # (Auto) 0.8 TH/MM3 Eosinophils # (Auto) 0.0 TH/MM3 Basophils # (Auto) 0.0 TH/MM3 CBC Comment DIFF FINAL Differential Comment MDM Supervised Visit with RAMIRO: Yes Interpretation(s) EKG: NSR 79bpm. Normal axis. TWI II, III, aVF, V4-V6 similar to prior. LVH. Diagnosis Primary Impression: BOAZ (acute kidney injury) Admitting Information Admitting Physician Requests: Observation Condition: Stable Mariama Parham DO November 06, 2017 00:25
[2017-11-06 00:50] LABS: AUTOMATED NEUTROPHIL # 5.3 TH/MM3 (1.8-7.7); BASOPHIL % 0.3 % (0.0-2.0); EOSINOPHIL % 0.1 % (0.0-4.0); HEMATOCRIT 47.2 % (39.0-51.0); LYMPH % 21.7 % (9.0-44.0); LYMPHOCYTE # 1.7 TH/MM3 (1.0-4.8); MEAN CELL VOLUME 95.6 FL (80.0-100.0); MEAN CORPUSCULAR HEMOGLOBIN 32.5 PG (27.0-34.0); MEAN PLATELET VOLUME 7.7 FL (7.0-11.0); MONO % 10.5 % (0.0-8.0); MONOCYTE # 0.8 TH/MM3 (0-0.9); NEUT % 67.4 % (16.0-70.0); PLATELET COUNT 376 TH/MM3 (150-450); RED BLOOD COUNT 4.94 MIL/MM3 (4.50-5.90); RED CELL DISTRIBUTION WIDTH 15.2 % (11.6-17.2); WHITE BLOOD COUNT 7.8 TH/MM3 (4.0-11.0)
[2017-11-06] MEDS ORDERED: LACTULOSE SYRUP 20 GM/30 ML CUP PO PRN (01:00)
[2017-11-06] MEDS ORDERED: SODIUM CHLOR 0.9% 1000 ML INJ 1,000 ML IV ONE (01:00)
[2017-11-06] MEDS ORDERED: BISACODYL 10 MG SUPP RECTAL PRN (01:00)
[2017-11-06] MEDS ORDERED: NALOXONE HCL 0.4 MG/ML AMP IV PUSH PRN (01:00)
[2017-11-06] MEDS ORDERED: MAGNESIUM HYDROXIDE SUSP 30 ML CUP PO PRN (01:00)
[2017-11-06] MEDS ORDERED: SENNOSIDES 8.6 MG TAB PO PRN (01:00)
[2017-11-06] MEDS ORDERED: ONDANSETRON ODT 4 MG TAB PO PRN (01:00)
[2017-11-06] MEDS ORDERED: SODIUM CHLORIDE 0.9% FLUSH 10 ML FLUSH IV FLUSH PRN (01:00)
--- NOTE | 2017-11-06 01:09 | HHI.HP ---
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 He does lawn work for a living and states he thought he was drinking enough water but maybe he wasn't. He states the the pain began yesterday and was just an all over body ache. He states it has gotten somewhat better since given fluids. He did notice he was urinating less as well. He denies any chest pain or sob. Review of Systems Except as stated in HPI: all other systems reviewed are Neg Past Family Social History Past Medical History Asthma Hypertension Past Surgical History Patient denies any surgical history Reported Medications Reported Meds & Active Scripts Active Lisinopril 20 Mg Tab 20 Mg PO BID Allergies: Coded Allergies: No Known Allergies (Verified , 08/06/16) Active Ordered Medications Current Medications Medications (Trade) Dose Ordered Sig/Tyler Route Start Time Stop Time Status Last Admin Sodium Chloride 1,000 ml @ 999 mls/hr BOLUS ONCE IV 11/06/17 01:00 11/06/17 02:00 11/06/17 01:05 Family History Dad: Colon cancer Mom: Diabetes Social History Tobacco use: Denies Alcohol use: Socially Physical Exam Vital Signs Vital Signs Date Time Temp Pulse Resp B/P (MAP) Pulse Ox O2 Delivery O2 Flow Rate FiO2 11/05/17 23:37 98.2 75 17 167/84 (111) 98 Room Air 11/05/17 18:30 98.3 93 16 162/94 (116) 96 Physical Exam GENERAL: This is a well-nourished, well-developed patient, in no apparent distress. SKIN: No rashes, ecchymoses or lesions. Cool and dry. HEAD: Atraumatic. Normocephalic. EYES: Pupils equal round and reactive. CARDIOVASCULAR: Regular rate and rhythm without murmurs, gallops, or rubs. RESPIRATORY: Clear to auscultation. Breath sounds equal bilaterally. No wheezes , rales, or rhonchi. GASTROINTESTINAL: Abdomen soft, non-tender, nondistended. No hepato-splenomegaly , or palpable masses. No guarding. MUSCULOSKELETAL: Extremities without clubbing, cyanosis, or edema. No calf tenderness. NEUROLOGICAL: Awake and alert. Motor and sensory grossly within normal limits. Normal speech. Laboratory Laboratory Tests Test 11/05/17 21:16 11/05/17 23:24 11/06/17 00:05 Urine Color YELLOW Urine Turbidity HAZY Urine pH 5.5 Urine Specific [place] 1.036 Urine Protein 100 Urine Glucose (UA) NEG Urine Ketones TRACE Urine Occult Blood SMALL Urine Nitrite NEG Urine Bilirubin NEG Urine Urobilinogen 2.0 Urine Leukocyte Esterase NEG Urine RBC 2 Urine WBC LESS THAN 1 Urine Squamous Epithelial Cells 1 Urine Hyaline Casts 34 Urine Mucus MANY Blood Urea Nitrogen 32 Creatinine 2.46 Random Glucose 97 Calcium Level 9.6 Sodium Level 138 Potassium Level 3.9 Chloride Level 104 Carbon Dioxide Level 23.9 Anion Gap 10 Estimat Glomerular Filtration Rate 33 Total Creatine Kinase 2097 Creatine Kinase MB 6.8 Creatine Kinase MB % 0.3 White Blood Count 7.8 Red Blood Count 4.94 Hemoglobin 16.0 Hematocrit 47.2 Mean Corpuscular Volume 95.6 Mean Corpuscular Hemoglobin 32.5 Mean Corpuscular Hemoglobin Concent 34.0 Red Cell Distribution Width 15.2 Platelet Count 376 Mean Platelet Volume 7.7 Neutrophils (%) (Auto) 67.4 Lymphocytes (%) (Auto) 21.7 Monocytes (%) (Auto) 10.5 Eosinophils (%) (Auto) 0.1 Basophils (%) (Auto) 0.3 Neutrophils # (Auto) 5.3 Lymphocytes # (Auto) 1.7 Monocytes # (Auto) 0.8 Eosinophils # (Auto) 0.0 Basophils # (Auto) 0.0 CBC Comment DIFF FINAL Differential Comment Result Diagram: 11/06/17 0005 11/05/17 1200 Caprini VTE Risk Assessment Caprini VTE Risk Assessment: No/Low Risk (score <= 1) Caprini Risk Assessment Model Point Value = 1 Point Value = 2 Point Value = 3 Point Value = 5 Age 41-60 Minor surgery BMI > 25 kg/m2 Swollen legs Varicose veins or History of unexplained or recurrent spontaneous Oral contraceptives or hormone replacement Sepsis (< 1 month) Serious lung disease, including pneumonia (< 1 month) Abnormal pulmonary function Acute myocardial infarction Congestive heart failure (< 1 month) History of inflammatory bowel disease Medical patient at bed rest Age 61-74 Arthroscopic surgery Major open surgery (> 45 min) Laparoscopic surgery (> 45 min) Malignancy Confined to bed (> 72 hours) Immobilizing plaster cast Central venous access Age >= 75 History of VTE Family history of VTE Factor V Leiden Prothrombin [id number] Lupus anticoagulant Anticardiolipin antibodies Elevated serum homocysteine Heparin-induced thrombocytopenia Other congenital or acquired thrombophilia Stroke (< 1 month) Elective arthroplasty Hip, pelvis, or leg fracture Acute spinal cord injury (< 1 month) Prophylaxis Regimen Total Risk Factor Score Risk Level Prophylaxis Regimen 0-1 Low Early ambulation 2 Moderate Order ONE of the following: *Sequential Compression Device (SCD) *Heparin 5000 units SQ BID 3-4 Higher Order ONE of the following medications: *Heparin 5000 units SQ TID *Enoxaparin/Lovenox 40 mg SQ daily (WT < 150 kg, CrCl > 30 mL/min) *Enoxaparin/Lovenox 30 mg SQ daily (WT < 150 kg, CrCl > 10-29 mL/min) *Enoxaparin/Lovenox 30 mg SQ BID (WT < 150 kg, CrCl > 30 mL/min) AND/OR *Sequential Compression Device (SCD) 5 or more Highest Order ONE of the following medications: *Heparin 5000 units SQ TID (Preferred with Epidurals) *Enoxaparin/Lovenox 40 mg SQ daily (WT < 150 kg, CrCl > 30 mL/min) *Enoxaparin/Lovenox 30 mg SQ daily (WT < 150 kg, CrCl > 10-29 mL/min) *Enoxaparin/Lovenox 30 mg SQ BID (WT < 150 kg, CrCl > 30 mL/min) AND *Sequential Compression Device (SCD) Assessment and Plan Problem List: (1) BOAZ (acute kidney injury) ICD Code: N17.9 - Acute kidney failure, unspecified Status: Acute (2) Rhabdomyolysis ICD Code: M62.82 - Rhabdomyolysis Status: Acute (3) Hypertension ICD Code: I10 - Hypertension Status: Acute Assessment and Plan 52 y/o with a history of asthma and hypertension presented to the ED with complaints of cramping and body pains after doing lawn work. Rhabdomyolysis, acute CPK 2096 -Serial CPK -IVF NS@100ml/hr BOAZ, secondary to rhabdomyolysis Creatine 2.46, baseline 1.1 -Cont IVF as above -Trend creatine HTN, chronic -Hold home lisinopril due to BOAZ, restart when kidney function resolves -Monitor vitals, clonidine prn DVT prophylaxis: SCDs Discussed Condition With Patient and RN Physician Certification 2 Midnight Certification Type: Admission for Inpatient Services Order for Inpatient Services The services are ordered in accordance with Medicare regulations or non- Medicare payer requirements, as applicable. In the case of services not specified as inpatient-only, they are appropriately provided as inpatient services in accordance with the 2-midnight benchmark. Estimated LOS (days): 2 days is the estimated time the patient will need to remain in the hospital, assuming treatment plan goals are met and no additional complications. Post-Hospital Plan: Home Problem Qualifiers (1) Rhabdomyolysis: Qualified Codes: M62.82 - Rhabdomyolysis (2) Hypertension: Qualified Codes: I10 - Essential (primary) hypertension Heide Merrill November 06, 2017 01:09
[2017-11-06] MEDS ORDERED: CYCLOBENZAPRINE HCL 10 MG TAB PO ONE (01:30)
[2017-11-06] MEDS ORDERED: cloNIDine HCL 0.1 MG TAB PO PRN (01:30)
[2017-11-06] MEDS: SODIUM CHLOR 0.9% 1000 ML INJ 1,000 ML IV SCH ×3 (01:50→17:18)
[2017-11-06] MEDS: DOCUSATE SODIUM 50 MG/SENNA 8.6 MG TAB PO SCH ×2 (08:11→21:07)
[2017-11-06] MEDS: SODIUM CHLORIDE 0.9% FLUSH 10 ML FLUSH IV FLUSH SCH ×2 (08:11→21:07)
--- NOTE | 2017-11-06 09:29 | HHI.PR ---
Subjective Remarks Follow-up rhabdomyolysis/acute kidney injury November 06, 2017-patient seen and examined, reported improvement of lower extremity cramps. Denies any chest pain or shortness of breath. Objective Vitals Vital Signs Date Time Temp Pulse Resp B/P (MAP) Pulse Ox O2 Delivery O2 Flow Rate FiO2 11/06/17 07:26 97.8 69 18 154/93 (113) 98 11/06/17 04:00 98.2 72 19 158/91 (113) 97 11/06/17 01:49 98.1 73 20 184/101 (128) 98 11/05/17 23:37 98.2 75 17 167/84 (111) 98 Room Air 11/05/17 18:30 98.3 93 16 162/94 (116) 96 I/O 11/05/17 11/05/17 11/05/17 11/06/17 11/06/17 11/06/17 07:00 15:00 23:00 07:00 15:00 23:00 Intake Total 2000 ml Balance 2000 ml Intake IV Total 2000 ml Result Diagram: 11/06/17 0005 11/05/17 2324 Objective Remarks GENERAL: NAD SKIN: Warm and dry. HEAD: Normocephalic. EYES: No scleral icterus. No injection or drainage. NECK: Supple, trachea midline. No JVD or lymphadenopathy. CARDIOVASCULAR: Regular rate and rhythm without murmurs, gallops, or rubs. RESPIRATORY: Breath sounds equal bilaterally. No accessory muscle use. GASTROINTESTINAL: Abdomen soft, non-tender, nondistended. MUSCULOSKELETAL: No cyanosis, or edema. BACK: Nontender without obvious deformity. No CVA tenderness. A/P Problem List: (1) BOAZ (acute kidney injury) ICD Code: N17.9 - Acute kidney failure, unspecified Status: Acute (2) Rhabdomyolysis ICD Code: M62.82 - Rhabdomyolysis Status: Acute (3) Hypertension ICD Code: I10 - Hypertension Status: Acute Assessment and Plan 52-year-old man with Rhabdomyolysis, acute CPK 2096 on presentation -Monitor serial CPK -Increased IVF NS@150ml/hr BOAZ, secondary to rhabdomyolysis Creatine 2.46, baseline 1.1 on presentation -Cont IVF as above -Trend creatine HTN, chronic -Hold home lisinopril due to BOAZ, restart when kidney function resolves Start hydralazine 50 mg every 12 hours -Monitor vitals, clonidine prn Cocaine abuse -Patient extensively counseled against DVT prophylaxis: SCDs Problem Qualifiers (1) Rhabdomyolysis: Qualified Codes: M62.82 - Rhabdomyolysis (2) Hypertension: Qualified Codes: I10 - Essential (primary) hypertension Kofi Murphy MD November 06, 2017 09:29
[2017-11-06 09:57] LABS: BICARBONATE 24.3 MEQ/L (21.0-32.0); CALCIUM 8.3 MG/DL (8.5-10.1); CREATININE 1.52 MG/DL (0.60-1.30)
[2017-11-06] MEDS: hydrALAZINE HCL 50 MG TAB PO SCH ×2 (11:05→21:07)
[2017-11-06] MEDS ORDERED: ALBUTEROL SULFATE 90 MCG/ACT HFA 8 GM INHALER INH PRN (14:30)
[2017-11-06] MEDS ORDERED: RESP: ALBUTEROL 2.5 MG/IPRATROPIUM 0.5 MG NEB (PRN) NEB (16:00)
--- NOTE | 2017-11-06 19:38 | EKG ---
Date Performed: 11/06/2017 Time Performed: 00:23:22 PTAGE: 52 years EKG: Sinus rhythm LEFT VENTRICULAR HYPERTROPHY AND ST-T CHANGE ABNORMAL ECG Since the PREVIOUS TRACING , no significant change noted PREVIOUS TRACIN08/06/2016 23.59 DOCTOR: Dago Champion Interpretating Date/Time 11/06/2017 19:36:11
[2017-11-07] MEDS: SODIUM CHLOR 0.9% 1000 ML INJ 1,000 ML IV SCH (01:25)
[2017-11-07 04:05] VITALS: PULSE 56
[2017-11-07 04:12] VITALS: BP 140/84; PULSE 65; RESP 16; TEMP 97.8; O2SAT 98
[2017-11-07 05:28] LABS: ALBUMIN 2.8 GM/DL (3.4-5.0); AST (GOT) 41 U/L (15-37); BICARBONATE 24.5 MEQ/L (21.0-32.0); BLOOD UREA NITROGEN 16 MG/DL (7-18); CALCIUM 7.8 MG/DL (8.5-10.1); CHLORIDE 109 MEQ/L (98-107); CREATININE 1.15 MG/DL (0.60-1.30); GLOMERULAR FILTRATION RATE 80 ML/MIN (>89); GLUCOSE,RANDOM 87 MG/DL (74-106); SODIUM (NA) 142 MEQ/L (136-145)
[2017-11-07 05:30] LABS: AUTOMATED NEUTROPHIL # 2.8 TH/MM3 (1.8-7.7); BASOPHIL % 0.6 % (0.0-2.0); EOSINOPHIL # 0.1 TH/MM3 (0-0.4); EOSINOPHIL % 2.2 % (0.0-4.0); HEMATOCRIT 40.4 % (39.0-51.0); HEMOGLOBIN 13.5 GM/DL (13.0-17.0); LYMPH % 39.9 % (9.0-44.0); LYMPHOCYTE # 2.4 TH/MM3 (1.0-4.8); MEAN CELL VOLUME 97.3 FL (80.0-100.0); MEAN CORPUSCULAR HEMOGLOBIN 32.6 PG (27.0-34.0); MEAN CORPUSCULAR HGB CONC 33.5 % (32.0-36.0); MONO % 11.4 % (0.0-8.0); MONOCYTE # 0.7 TH/MM3 (0-0.9); NEUT % 45.9 % (16.0-70.0); PLATELET COUNT 228 TH/MM3 (150-450); RED BLOOD COUNT 4.15 MIL/MM3 (4.50-5.90); WHITE BLOOD COUNT 6.1 TH/MM3 (4.0-11.0)
[2017-11-07 05:41] LABS: ALKALINE PHOSPHATASE 29 U/L (45-117); ALT (GPT) 31 U/L (12-78); TOTAL BILIRUBIN ADULT 0.3 MG/DL (0.2-1.0); TOTAL PROTEIN 6.1 GM/DL (6.4-8.2)
[2017-11-07 07:44] VITALS: PULSE 63
[2017-11-07 08:01] VITALS: BP 179/100; PULSE 59; RESP 18; TEMP 98.6; O2SAT 98
[2017-11-07] MEDS ORDERED: Albuterol Hfa Inh INH (08:21)
[2017-11-07] MEDS: hydrALAZINE HCL 50 MG TAB PO SCH (08:24)
[2017-11-07] MEDS: DOCUSATE SODIUM 50 MG/SENNA 8.6 MG TAB PO SCH (08:24)
[2017-11-07] MEDS: SODIUM CHLORIDE 0.9% FLUSH 10 ML FLUSH IV FLUSH SCH (08:25)
--- NOTE | 2017-11-07 08:26 | HHI.PR ---
Subjective Remarks Follow-up rhabdomyolysis/acute kidney injury November 06, 2017-patient seen and examined, reported improvement of lower extremity cramps. Denies any chest pain or shortness of breath. November 07, 2017-patient seen and examined, states he feels much better and denies any muscle cramps. Renal indices improving Objective Vitals Vital Signs Date Time Temp Pulse Resp B/P (MAP) Pulse Ox O2 Delivery O2 Flow Rate FiO2 11/07/17 08:01 98.6 59 18 179/100 (126) 98 11/07/17 07:44 63 11/07/17 04:12 97.8 65 16 140/84 (102) 98 11/07/17 04:05 56 11/06/17 23:05 98.8 68 18 139/84 (102) 97 11/06/17 19:52 97.8 59 18 148/68 (94) 100 11/06/17 16:00 97.6 67 18 159/98 (118) 98 11/06/17 15:00 70 11/06/17 11:15 97.5 67 18 138/79 (98) 99 I/O 11/06/17 11/06/17 11/06/17 11/07/17 11/07/17 11/07/17 07:00 15:00 23:00 07:00 15:00 23:00 Intake Total 2000 ml Balance 2000 ml Intake IV Total 2000 ml Result Diagram: 11/07/17 0417 11/07/17 0417 Objective Remarks GENERAL: NAD SKIN: Warm and dry. HEAD: Normocephalic. EYES: No scleral icterus. No injection or drainage. NECK: Supple, trachea midline. No JVD or lymphadenopathy. CARDIOVASCULAR: Regular rate and rhythm without murmurs, gallops, or rubs. RESPIRATORY: Breath sounds equal bilaterally. No accessory muscle use. GASTROINTESTINAL: Abdomen soft, non-tender, nondistended. MUSCULOSKELETAL: No cyanosis, or edema. BACK: Nontender without obvious deformity. No CVA tenderness. Procedures none A/P Problem List: (1) BOAZ (acute kidney injury) ICD Code: N17.9 - Acute kidney failure, unspecified Status: Resolved (2) Rhabdomyolysis ICD Code: M62.82 - Rhabdomyolysis Status: Acute (3) Hypertension ICD Code: I10 - Hypertension Status: Acute Assessment and Plan 52-year-old man with Rhabdomyolysis, acute CPK 2096 on presentation -Monitor serial CPK -On IVF NS@150ml/hr BOAZ, secondary to rhabdomyolysis-Resolved Creatine 2.46, baseline 1.1 on presentation -Cont IVF as above HTN, chronic -d/c home lisinopril due to BOAZ, -on hydralazine 50 mg every 12 hours -Monitor vitals, clonidine prn Cocaine abuse -Patient extensively counseled against DVT prophylaxis: SCDs Problem Qualifiers (1) Rhabdomyolysis: Qualified Codes: M62.82 - Rhabdomyolysis (2) Hypertension: Qualified Codes: I10 - Essential (primary) hypertension Kofi Murphy MD November 07, 2017 08:26
[2017-11-07] MEDS ORDERED: HYDR-3800 PO (08:28)
[2017-11-07] MEDS ORDERED: OMEP20TA93 PO (08:31)
--- NOTE | 2017-11-07 08:31 | HHI.DS ---
Discharge Summary Admission Date November 06, 2017 at 01:23 Discharge Date: November 07, 2017 Admitting Diagnosis Acute kidney injury (1) BOAZ (acute kidney injury) ICD Code: N17.9 - Acute kidney failure, unspecified Status: Resolved (2) Rhabdomyolysis ICD Code: M62.82 - Rhabdomyolysis Status: Acute (3) Hypertension ICD Code: I10 - Hypertension Status: Acute Procedures none Brief History - From Admission 52 y/o with a history of asthma and hypertension presented to the ED with complaints of cramping and body pains after doing lawn work. He does lawn work for a living and states he thought he was drinking enough water but maybe he wasn't. He states the the pain began yesterday and was just an all over body ache. He states it has gotten somewhat better since given fluids. He did notice he was urinating less as well. He denies any chest pain or sob. CBC/BMP: 11/07/17 0417 11/07/17 0417 Significant Findings Laboratory Tests Test 11/05/17 21:16 11/05/17 23:24 11/06/17 00:05 11/06/17 09:09 Urine Turbidity HAZY (CLEAR) Urine Specific [place] 1.036 (1.002-1.035) Urine Protein 100 mg/dL (NEG-TRACE) Urine Ketones TRACE mg/dL (NEG) Urine Occult Blood SMALL (NEG) Urine Mucus MANY /lpf (OCC) Urine Opiates Screen POS (NEG) Urine Cocaine Screen POS (NEG) Blood Urea Nitrogen 32 MG/DL (7-18) 21 MG/DL (7-18) Creatinine 2.46 MG/DL (0.60-1.30) 1.52 MG/DL (0.60-1.30) Estimat Glomerular Filtration Rate 33 ML/MIN (>89) 58 ML/MIN (>89) Total Creatine Kinase 2097 U/L (39-308) 2868 U/L (39-308) Creatine Kinase MB 6.8 NG/ML (0.5-3.6) 7.0 NG/ML (0.5-3.6) Monocytes (%) (Auto) 10.5 % (0.0-8.0) Calcium Level 8.3 MG/DL (8.5-10.1) Test 11/07/17 04:17 Red Blood Count 4.15 MIL/MM3 (4.50-5.90) Monocytes (%) (Auto) 11.4 % (0.0-8.0) Total Protein 6.1 GM/DL (6.4-8.2) Albumin 2.8 GM/DL (3.4-5.0) Calcium Level 7.8 MG/DL (8.5-10.1) Alkaline Phosphatase 29 U/L (45-117) Aspartate Amino Transf (AST/SGOT) 41 U/L (15-37) Chloride Level 109 MEQ/L (98-107) Estimat Glomerular Filtration Rate 80 ML/MIN (>89) Total Creatine Kinase 2458 U/L (39-308) Creatine Kinase MB 4.5 NG/ML (0.5-3.6) PE at Discharge GENERAL: NAD SKIN: Warm and dry. HEAD: Normocephalic. EYES: No scleral icterus. No injection or drainage. NECK: Supple, trachea midline. No JVD or lymphadenopathy. CARDIOVASCULAR: Regular rate and rhythm without murmurs, gallops, or rubs. RESPIRATORY: Breath sounds equal bilaterally. No accessory muscle use. GASTROINTESTINAL: Abdomen soft, non-tender, nondistended. MUSCULOSKELETAL: No cyanosis, or edema. BACK: Nontender without obvious deformity. No CVA tenderness. Hospital Course While in the hospital, patient was treated for: Rhabdomyolysis, acute CPK 2097 on presentation -Monitor serial CPK -On IVF NS@150ml/hr BOAZ, secondary to rhabdomyolysis-Resolved with IV fluid hydration HTN, chronic - home lisinopril was held due to BOAZ, -He was started on hydralazine 50 mg every 12 hours -Monitor vitals, clonidine prn Cocaine abuse -Patient extensively counseled against DVT prophylaxis: SCDs Pt Condition on Discharge: Good Discharge Disposition: Discharge Home Discharge Time: <= 30 minutes Discharge Instructions DIET: Follow Instructions for: Heart Healthy Diet Activities you can perform: Regular-No Restrictions Follow up Referrals: PCP Follow-up - 2-3 Days New Medications: Hydralazine HCl (Hydralazine HCl) 50 Mg Tablet 50 MG PO Q12HR for Blood Pressure Management, #60 MG 3 Refills [Albuterol Hfa Inh] () 60 PUFF/8 GM AERO 2 PUFF INH Q6H PRN for SOB/WHEEZING, #1 INHALER Continued Medications: Lisinopril (Lisinopril) 20 Mg Tab 20 MG PO BID, #30 TAB 0 Refills Kofi Murphy MD November 07, 2017 08:30
--- NOTE | 2017-11-07 08:33 | HHI.DCPOC ---
Discharge Care Plan Diagnosis: (1) BOAZ (acute kidney injury) (2) Rhabdomyolysis Additional Problems Fatigue Goals to Promote Your Health * To prevent worsening of your condition and complications * To maintain your health at the optimal level Directions to Meet Your Goals Take your medications as prescribed Follow your dietary instruction Follow activity as directed Keep your appointments as scheduled Take your immunizations and boosters as scheduled If your symptoms worsen call your PCP, if no PCP go to Urgent Care Center or Emergency Room Smoking is Dangerous to Your Health. Avoid second hand smoke Call the 24-hour hour crisis hotline for domestic abuse at [facility] November 07, 2017 08:33
[2017-11-07 09:20] VITALS: BP 160/86
== END 2017-11-07 09:43 | disposition home or self-care (01) | DRG 683 ==
LOC: NEPD 18:08 → NEDA 11-06 01:07 → OBSVTOIN 11-06 01:23 → NEPFCDU 11-06 01:37
PROVIDERS: ADMIT Hospitalist; ATTEND Hospitalist
DX: N17.9 Acute kidney failure, unspecified (principal); M62.82 Rhabdomyolysis; I10 Essential (primary) hypertension; F14.10 Cocaine abuse, uncomplicated; J45.909 Unspecified asthma, uncomplicated
CPT/HCPCS: 80048; 80053; 80307; 81001; 82550; 82552; 85025; 93005; 96360; 96361; J7030

== ENCOUNTER 2017-12-23 12:24 | Emergency (ER) | payer SELFPAY ==
[~2017-12-23] VITALS: Ht 167.6 cm; Wt 100.0 kg
[~2017-12-23 12:24] MED LIST changes: -ALBU6.7H INH; -ASPI-516 CHEW; +Albuterol Hfa Inh INH; -CARA1TAB6 PO; +HYDR-3800 PO; -LOMO2.5T PO; +OMEP20TA93 PO; -PROT40TA PO; -RANI150T PO
[2017-12-23 12:34] VITALS: BP 184/107; PULSE 74; RESP 20; TEMP 98.4; O2SAT 98
--- NOTE | 2017-12-23 14:54 | PD ---
HPI Chief Complaint: Respiratory Symptoms Time Seen by Provider: 14:51 Travel History International Travel<30 days: No Contact w/Intl Traveler<30days: No Traveled to known affect area: No History of Present Illness HPI 52-year-old male arrives requesting a work note because yesterday he had an asthma attack and was unable to work according to his employer. The patient began to feel short of breath at about 8 PM yesterday. Symptoms resolved and then again around 11 or 12 PM he felt short of breath. He found his asthma inhaler and used it at home and the symptoms resolved. This morning he used a nebulizer treatment at home which helped his symptoms further. He has no chest pain shortness of breath fever or chills to report currently. About once monthly he experiences an asthma exacerbation and reports yesterday's event to have been similar to priors. PFSH Past Medical History Hx Anticoagulant Therapy: No Arthritis: Yes (knee arthritis) Asthma: Yes Cancer: No Cardiovascular Problems: No Chemotherapy: No Cerebrovascular Accident: No Diabetes: No Diminished Hearing: No Endocrine: No Genitourinary: No Hypertension: Yes Immune Disorder: No Musculoskeletal: Yes Neurologic: No Psychiatric: No Reproductive: No Respiratory: Yes Immunizations Current: No Migraines: Yes Past Surgical History Abdominal Surgery: No Cardiac Surgery: No Ear Surgery: No Endocrine Surgery: No Eye Surgery: No Genitourinary Surgery: No Gynecologic Surgery: No Oral Surgery: No Thoracic Surgery: No Social History Alcohol Use: Yes ("SOMETIMES") Tobacco Use: No Substance Use: No Allergies-Medications (Allergen,Severity, Reaction): Coded Allergies: No Known Allergies (Verified Adverse Reaction, Unknown, 12/23/17) Reported Meds & Prescriptions Reported Meds & Active Scripts Active Omeprazole 20 Mg Tab 20 Mg PO DAILY Hydralazine HCl 50 Mg Tablet 50 Mg PO Q12HR [Albuterol Hfa Inh] 60 PUFF/8 GM Aero 2 Puff INH Q6H PRN Lisinopril 20 Mg Tab 20 Mg PO BID Review of Systems Except as stated in HPI: all other systems reviewed are Neg General / Constitutional: No: Fever Physical Exam Narrative GENERAL: 52-year-old male pleasant well-nourished well-developed Vital Signs Date Time Temp Pulse Resp B/P (MAP) Pulse Ox O2 Delivery O2 Flow Rate FiO2 12/23/17 12:34 98.4 74 20 184/107 (132) 98 SKIN: Warm and dry. HEAD: Atraumatic. Normocephalic. EYES: Pupils equal and round. No scleral icterus. No injection or drainage. ENT: No nasal bleeding or discharge. Mucous membranes pink and moist. NECK: Trachea midline. No JVD. CARDIOVASCULAR: Regular rate and rhythm. RESPIRATORY: No accessory muscle use. Clear to auscultation. Breath sounds equal bilaterally. GASTROINTESTINAL: Abdomen soft, non-tender, nondistended. Hepatic and splenic margins not palpable. MUSCULOSKELETAL: Extremities without clubbing, cyanosis, or edema. No obvious deformities. NEUROLOGICAL: Awake and alert. No obvious cranial nerve deficits. Motor grossly within normal limits. Five out of 5 muscle strength in the arms and legs. Normal speech. PSYCHIATRIC: Appropriate mood and affect; insight and judgment normal. Data Data Last Documented VS Vital Signs Date Time Temp Pulse Resp B/P (MAP) Pulse Ox O2 Delivery O2 Flow Rate FiO2 12/23/17 12:34 98.4 74 20 184/107 (132) 98 MDM Medical Decision Making Medical Screen Exam Complete: Yes Emergency Medical Condition: Yes Medical Record Reviewed: Yes Differential Diagnosis Asthma exacerbation, pneumonia, COPD Narrative Course The patient's symptoms resolved yesterday evening. He has a history of asthma and has inhalers to use and states symptoms yesterday were similar to prior asthma exacerbations. Furthermore he states that he is here today exclusively for the purpose of obtaining note such that he can return to work. 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 Work note provided. Patient is ready for discharge. He states he has inhalers at home and does not need steroids. Diagnosis Primary Impression: Asthma Qualified Codes: J45.909 - Unspecified asthma, uncomplicated Referrals: Primary Care Physician call for appointment Med/Other Pt SpecificInfo: No Change to Meds Disposition: DISCHARGE HOME Condition: Stable Yuriy Nash MD Dec 23, 2017 14:54
== END 2017-12-23 15:25 | disposition home or self-care (01) ==
LOC: NEPD 12:24
DX: J45.909 Unspecified asthma, uncomplicated (principal); I10 Essential (primary) hypertension
CPT/HCPCS: 99281

== ENCOUNTER 2017-12-30 21:04 | Inpatient (IN) ==
[2017-12-31] MEDS ORDERED: Sod Chloride 0.9% Inj 2,000 ML IV.SIG ONE (02:37)
[2017-12-31 03:26] LABS: Baso % (Auto) 0.2 % (0.0-2.0); Eos % (Auto) 0.1 % (0.0-4.0); Hematocrit 48.9 % (39.0-51.0); Hemoglobin 16.5 gm/dL (13.0-17.0); Lymph # (Auto) 1.7 th/mm3 (1.0-4.8); Lymph % (Auto) 19.9 % (9.0-44.0); Mean Corpuscular HGB Conc 33.7 % (32.0-36.0); Mean Corpuscular Hemoglobin 32.4 pg (27.0-34.0); Mean Corpuscular Volume 96.3 fL (80.0-100.0); Mean Platelet Volume 7.3 fL (7.0-11.0); Mono # (Auto) 0.8 th/mm3 (0.0-0.9); Mono % (Auto) 9.3 % (0.0-8.0); Neut # (Auto) 6.1 th/mm3 (1.8-7.7); Neut % (Auto) 70.5 % (16.0-70.0); Platelet Count 384 th/mm3 (150-450); Red Blood Count 5.08 mil/mm3 (4.50-5.90); White Blood Count 8.6 th/mm3 (4.0-11.0)
[2017-12-31 05:00] LABS: Alkaline Phosphatase 44 U/L (45-117); Total Protein 9.4 g/dL (6.4-8.2)
[2017-12-31 05:06] LABS: Alanine Aminotransferase 37 U/L (12-78)
[2017-12-31 05:11] LABS: Albumin 4.6 g/dL (3.4-5.0); Anion Gap 17 meq/L (5-15); Aspartate Aminotransferase 32 U/L (15-37); Blood Urea Nitrogen 32 mg/dL (7-18); Calcium 10.4 mg/dL (8.5-10.1); Chloride 95 meq/L (98-107); Glomerular Filtration Rate 20 mL/min (>89); Glucose,Random 134 mg/dL (74-106); Lipase 97 U/L (73-393); Potassium 3.7 meq/L (3.5-5.1); Sodium 136 meq/L (136-145)
[2017-12-31] MEDS ORDERED: Bisacodyl 10 MG Supp RECTAL PRN (06:17)
[2017-12-31] MEDS ORDERED: Temazepam 15 MG Capsule PO PRN (06:17)
--- NOTE | 2017-12-31 06:23 | ED ---
[facility] General Chief complaint: Abdominal Pain Stated complaint: abd pain Time Seen by Provider: 12/31/17 02:31 Source: patient and family History of Present Illness [facility] narrative: 52-year-old male presents to the emergency department complaining of pain in his stomach, throughout his arms and legs, with moderate diffuse cramping, worse over the past day or so, especially bad. Improved just recently. Similar episode several months ago related to dehydration and acute kidney injury. Works outside in the sun. Is otherwise been feeling well. Related Data Home Medications Medication Instructions Recorded Confirmed lisinopril 20 mg PO DAILY 12/31/17 12/31/17 Allergies Allergy/AdvReac Type Severity Reaction Status Date / Time No Known Allergies Unknown Uncoded 12/23/17 12:34 Review of Systems ROS Unobtainable All other systems reviewed negative except as stated in HPI [facility] Medical History Medical History Asthma (Acute) HTN (hypertension) (Acute) Social History Social History Second Hand Smoke Exposure: No Smoking Status: Never smoker How Often Do You Have a Drink Containing Alcohol: 2 to 3 times a week Recent Travel in [facility] within the Last 8 Weeks: No Recent Out of Country Travel within the Last 8 Weeks: No Immunization History Tetanus Immunization: <5 Years Hx Influenza Vaccine This Season: Yes Exam Narrative Exam Narrative: GENERAL: Well-appearing, no acute distress. SKIN: Focused skin assessment warm/dry. HEAD: Atraumatic. Normocephalic. EYES: Pupils equal and round. No scleral icterus. No injection or drainage. ENT: No nasal bleeding or discharge. Mucous membranes pink and moist. NECK: Trachea midline. No JVD. CARDIOVASCULAR: Regular rate and rhythm. No murmur appreciated. RESPIRATORY: No accessory muscle use. Clear to auscultation. Breath sounds equal bilaterally. GASTROINTESTINAL: Abdomen soft, non-tender, nondistended. Hepatic and splenic margins not palpable. MUSCULOSKELETAL: No obvious deformities. No clubbing. No cyanosis. No edema. NEUROLOGICAL: Awake and alert. No obvious cranial nerve deficits. Motor grossly within normal limits. Normal speech. PSYCHIATRIC: Appropriate mood and affect; insight and judgment normal. Course Initial Documented Vital Signs Temperature 97.9 F 12/30/17 22:47 Pulse Rate 78 12/30/17 22:47 Respiratory Rate 16 12/30/17 22:47 Blood Pressure 156/88 H 12/30/17 22:47 Pulse Oximetry 98 12/30/17 22:47 Last Documented Vital Signs Temperature 98.1 F 12/31/17 02:54 Pulse Rate 58 L 12/31/17 02:54 Respiratory Rate 17 12/31/17 02:54 Blood Pressure 145/81 H 12/31/17 02:54 Pulse Oximetry 96 12/31/17 02:54 Medical Decision Making MDM Narrative Medical decision making narrative: 52-year-old man, abdominal cramping with acute kidney injury likely related to heat exhaustion and dehydration. Will add CPK. I spoke with Dr. Pal, will admit patient. Lab Data Lab results reviewed: Yes I reviewed the patient's lab results. Result diagrams: 12/31/17 03:10 12/31/17 03:10 Lab Results 12/31/17 12/31/17 Range/Units 03:10 03:10 WBC 8.6 (4.0-11.0) th/mm3 RBC 5.08 (4.50-5.90) mil/mm3 Hgb 16.5 (13.0-17.0) gm/dL Hct 48.9 (39.0-51.0) % MCV 96.3 (80.0-100.0) fL MCH 32.4 (27.0-34.0) pg MCHC 33.7 (32.0-36.0) % RDW 15.0 (11.6-17.2) % Plt Count 384 (150-450) th/mm3 MPV 7.3 (7.0-11.0) fL Neut % (Auto) 70.5 H (16.0-70.0) % Lymph % (Auto) 19.9 (9.0-44.0) % [place] % (Auto) 9.3 H (0.0-8.0) % Eos % (Auto) 0.1 (0.0-4.0) % Baso % (Auto) 0.2 (0.0-2.0) % Neut # (Auto) 6.1 (1.8-7.7) th/mm3 Lymph # (Auto) 1.7 (1.0-4.8) th/mm3 [place] # (Auto) 0.8 (0.0-0.9) th/mm3 Eos # (Auto) 0.0 (0.0-0.4) th/mm3 Baso # (Auto) 0.0 (0.0-0.2) th/mm3 WBC Differential . Differential Comment Auto diff final Sodium 136 (136-145) meq/L Potassium 3.7 (3.5-5.1) meq/L Chloride 95 L (98-107) meq/L Carbon Dioxide 24.0 (21.0-32.0) meq/L Anion Gap 17 H (5-15) meq/L BUN 32 H (7-18) mg/dL Creatinine 3.85 H (0.60-1.30) mg/dL Estimated GFR 20 L (>89) mL/min Random Glucose 134 H (74-106) mg/dL Calcium 10.4 H (8.5-10.1) mg/dL Total Bilirubin 0.5 (0.2-1.0) mg/dL AST 32 (15-37) U/L ALT 37 (12-78) U/L Alkaline Phosphatase 44 L (45-117) U/L Total Protein 9.4 H (6.4-8.2) g/dL Albumin 4.6 (3.4-5.0) g/dL Lipase 97 (73-393) U/L Discharge Plan Discharge Disposition Patient Disposition: 30 Still Patient Discharge Details Discharge Problem: Dehydration, Acute kidney injury Physicians Team ED Provider: Liam Lees Primary Care Provider: Bhupinder Mcconnell Rxs /Orders / Referrals /Forms Prescriptions: No Action lisinopril 20 mg Tablet 20 mg PO DAILY RF: 0 Discharge Interventions Interventions: Vital Signs Last Done: 12/31/17 02:54 Status ED Status: With Doctor
[2017-12-31] MEDS: Sod Chloride 0.9% Inj 1,000 ML IV.CONT SCH ×3 (07:02→20:12)
[2017-12-31 07:49] LABS: CKMB Percent 0.5 % (0.0-4.0); Creatine Kinase MB 6.6 ng/mL (0.5-3.6)
[2017-12-31 15:03] LABS: Bacteria,Urine Rare /hpf; Bilirubin,Urine Negative (Negative); Clarity,Urine Hazy (Clear); Color,Urine Yellow (Yellw/Straw); Glucose,Urine (UA) Negative (Negative); Hyaline Casts,Urine 43 /lpf (0-3); Leukocyte Esterase,Urine Negative (Negative); Mucus,Urine Few /lpf (Occasional); Nitrite,Urine Negative (Negative); Specific Gravity,Urine 1.024 (1.002-1.035)
[2017-12-31 15:05] LABS: Amphetamine Screen,Urine Neg (Neg); Barbiturate Screen,Urine Neg (Neg); Cannabinoid Screen,Urine Neg (Neg); Cocaine Screen,Urine Pos (Neg); Opiate Screen,Urine Neg (Neg)
--- NOTE | 2017-12-31 16:22 | P.HP ---
History of Present Illness Primary Care Physician: Bhupinder Mcconnell DO Chief Complaint: Abdominal and leg cramps History of Present Illness: 52-year-old -[place] male with past medical history of hypertension presented yesterday to the ED for evaluation of an acute onset of abdominal and leg cramps, as a result of patient being outside under the sun for over 3 hours. Patient states, he was cutting his grass. He had no complaint of chest pain or shortness of breath. CK was elevated to 1300+. Patient was admitted few months ago and treated for rhabdomyolysis along with worsening renal function. - Diagnosis (1) Rhabdomyolysis (2) Acute kidney injury (3) HTN (hypertension) - Inpatient Certification If this patient has been admitted as an Inpatient: I certify that the inpatient services were ordered in accordance with Medicare regulations governing the order. This includes certification that hospital inpatient services are reasonable and necessary and in the case of services not specified as inpatient-only under 42 CFR 419.22(n), that they are appropriately provided as inpatient services in accordance to with the 2-midnight benchmark under 43 CFR 412.3(e) Estimated Total Length of Stay (Days): 2 Plans for Post Hospital Care: Not yet determined Review of Systems All other systems reviewed negative except as stated in HPI PMFSH - History History Provided By: Patient - Medical History Medical History: Medical History (Last Reviewed 12/31/17 @ 06:48 by Jumana Hoover) Asthma (Acute) HTN (hypertension) (Acute) - Tobacco History Second Hand Smoke Exposure: No Smoking Status: Never smoker - Alcohol History How Often Do You Have a Drink Containing Alcohol: 2 to 3 times a week - Travel History Recent Travel in the [place] Within the Last 8 Weeks: No Recent Travel Out of the Country Within the Last 8 Weeks: No - Immunization History Tetanus Immunization: <5 Years Hx Influenza Vaccine This Season: Yes Medications and Allergies Active Medications: Active Medications Al Hydroxide/Mg Hydroxide (Milk Of Magnesia Liq) 30 ml PO Q12H PRN PRN Reason: Mild Constipation Diphenhydramine HCl (Benadryl) 25 mg PO Q6H PRN PRN Reason: ALLERGIC REACTION Sodium Chloride (Ns Inj) 1,000 mls @ 100 mls/hr IV.CONT .Q10H HAZEL Last Admin: 12/31/17 07:02 Dose: 100 mls/hr Lisinopril (Prinivil) 20 mg PO DAILY HAZEL Temazepam (Restoril) 15 mg PO HS PRN PRN Reason: INSOMNIA Allergies Allergy/AdvReac Type Severity Reaction Status Date / Time No Known Allergies Unknown Uncoded 12/23/17 12:34 Home Medications Medication Instructions Recorded Confirmed Type lisinopril 20 mg PO DAILY 12/31/17 12/31/17 History Exam Vital signs: Vital Signs 12/30/17 22:47 12/31/17 02:54 12/31/17 07:25 Temperature 97.9 F 98.1 F 97.8 F Pulse Rate 78 58 L 64 Respiratory Rate 16 17 16 Blood Pressure 156/88 H 145/81 H 152/80 H Pulse Oximetry 98 96 99 12/31/17 07:32 12/31/17 08:00 Temperature 97.8 F 97.9 F Pulse Rate 63 Respiratory Rate 20 Blood Pressure 152/80 H 155/91 H Pulse Oximetry 96 Intake & Output 12/30/17 12/31/17 12/31/17 18:59 06:59 18:59 Weight 102.058 kg Narrative: GENERAL: NAD SKIN: Warm and dry. HEAD: Atraumatic. Normocephalic. EYES: Pupils equal and round. No scleral icterus. No injection or drainage. ENT: No nasal bleeding or discharge. Mucous membranes pink and moist. NECK: Trachea midline. No JVD. CARDIOVASCULAR: Regular rate and rhythm. RESPIRATORY: No accessory muscle use. Clear to auscultation. Breath sounds equal bilaterally. GASTROINTESTINAL: Abdomen soft, non-tender, nondistended. Hepatic and splenic margins not palpable. MUSCULOSKELETAL: Extremities without clubbing, cyanosis, or edema. No obvious deformities. NEUROLOGICAL: Awake and alert. No obvious cranial nerve deficits. Motor grossly within normal limits. Five out of 5 muscle strength in the arms and legs. Normal speech. PSYCHIATRIC: Appropriate mood and affect; insight and judgment normal. Results - Labs CBC & Chem 7: 12/31/17 03:10 12/31/17 03:10 Labs: Laboratory Results - last 24 hr 12/31/17 12/31/17 12/31/17 03:10 03:10 06:47 WBC 8.6 RBC 5.08 Hgb 16.5 Hct 48.9 MCV 96.3 MCH 32.4 MCHC 33.7 RDW 15.0 Plt Count 384 MPV 7.3 Neut % (Auto) 70.5 H Lymph % (Auto) 19.9 [place] % (Auto) 9.3 H Eos % (Auto) 0.1 Baso % (Auto) 0.2 Neut # (Auto) 6.1 Lymph # (Auto) 1.7 [place] # (Auto) 0.8 Eos # (Auto) 0.0 Baso # (Auto) 0.0 WBC Differential . Differential Comment Auto diff final Sodium 136 Potassium 3.7 Chloride 95 L Carbon Dioxide 24.0 Anion Gap 17 H BUN 32 H Creatinine 3.85 H Estimated GFR 20 L Random Glucose 134 H Lactic Acid Calcium 10.4 H Total Bilirubin 0.5 AST 32 ALT 37 Alkaline Phosphatase 44 L Total Creatine Kinase 1392 H CK-MB (CK-2) 6.6 H CK-MB (CK-2) % 0.5 Total Protein 9.4 H Albumin 4.6 Lipase 97 Urine Color Urine Clarity Urine pH Ur Specific [place] Urine Protein Urine Glucose (UA) Urine Ketones Urine Occult Blood Urine Nitrate Urine Bilirubin Urine Urobilinogen Ur Leukocyte Esterase Urine RBC Urine WBC Urine Bacteria Hyaline Casts Urine Mucus Micro UA Comment Urine Culture Comments Urine Opiates Screen Ur Barbiturates Screen Ur Amphetamines Screen U Benzodiazepines Scrn Urine Cocaine Screen U Cannabinoids Screen 12/31/17 12/31/17 12/31/17 06:47 11:00 11:00 WBC RBC Hgb Hct MCV MCH MCHC RDW Plt Count MPV Neut % (Auto) Lymph % (Auto) [place] % (Auto) Eos % (Auto) Baso % (Auto) Neut # (Auto) Lymph # (Auto) [place] # (Auto) Eos # (Auto) Baso # (Auto) WBC Differential Differential Comment Sodium Potassium Chloride Carbon Dioxide Anion Gap BUN Creatinine Estimated GFR Random Glucose Lactic Acid 1.2 Calcium Total Bilirubin AST ALT Alkaline Phosphatase Total Creatine Kinase CK-MB (CK-2) CK-MB (CK-2) % Total Protein Albumin Lipase Urine Color Yellow Urine Clarity Hazy H Urine pH 5.0 Ur Specific [place] 1.024 Urine Protein 30 H Urine Glucose (UA) Negative Urine Ketones Negative Urine Occult Blood Small H Urine Nitrate Negative Urine Bilirubin Negative Urine Urobilinogen Less than 2 Ur Leukocyte Esterase Negative Urine RBC Less than 1 Urine WBC 4 Urine Bacteria Rare H Hyaline Casts 43 Urine Mucus Few H Micro UA Comment Culture not ind Urine Culture Comments Culture not ind Urine Opiates Screen Neg Ur Barbiturates Screen Neg Ur Amphetamines Screen Neg U Benzodiazepines Scrn Neg Urine Cocaine Screen Pos U Cannabinoids Screen Neg Caprini VTE Risk Assessment Caprini VTE Risk Assessment: No/Low Risk (score <= 1) Caprini Risk Assessment Model: Point Value = 1 Point Value = 2 Point Value = 3 Point Value = 5 Age 41-60 Minor surgery BMI > 25 kg/m2 Swollen legs Varicose veins or History of unexplained or recurrent spontaneous Oral contraceptives or hormone replacement Sepsis (< 1 month) Serious lung disease, including pneumonia (< 1 month) Abnormal pulmonary function Acute myocardial infarction Congestive heart failure (< 1 month) History of inflammatory bowel disease Medical patient at bed rest Age 61-74 Arthroscopic surgery Major open surgery (> 45 min) Laparoscopic surgery (> 45 min) Malignancy Confined to bed (> 72 hours) Immobilizing plaster cast Central venous access Age >= 75 History of VTE Family history of VTE Factor V Leiden Prothrombin [id number] Lupus anticoagulant Anticardiolipin antibodies Elevated serum homocysteine Heparin-induced thrombocytopenia Other congenital or acquired thrombophilia Stroke (< 1 month) Elective arthroplasty Hip, pelvis, or leg fracture Acute spinal cord injury (< 1 month) Prophylaxis Regimen: Total Risk Factor Score Risk Level Prophylaxis Regimen 0-1 Low Early ambulation 2 Moderate Order ONE of the following: *Sequential Compression Device (SCD) *Heparin 5000 units SQ BID 3-4 Higher Order ONE of the following medications: *Heparin 5000 units SQ TID *Enoxaparin/Lovenox 40 mg SQ daily (WT < 150 kg, CrCl > 30 mL/min) *Enoxaparin/Lovenox 30 mg SQ daily (WT < 150 kg, CrCl > 10-29 mL/min) *Enoxaparin/Lovenox 30 mg SQ BID (WT < 150 kg, CrCl > 30 mL/min) AND/OR *Sequential Compression Device (SCD) 5 or more Highest Order ONE of the following medications: *Heparin 5000 units SQ TID (Preferred with Epidurals) *Enoxaparin/Lovenox 40 mg SQ daily (WT < 150 kg, CrCl > 30 mL/min) *Enoxaparin/Lovenox 30 mg SQ daily (WT < 150 kg, CrCl > 10-29 mL/min) *Enoxaparin/Lovenox 30 mg SQ BID (WT < 150 kg, CrCl > 30 mL/min) AND *Sequential Compression Device (SCD) Assessment and Plan - Assessment (1) Rhabdomyolysis Code(s): M62.82 - Rhabdomyolysis Status: Acute (2) Acute kidney injury Code(s): N17.9 - Acute kidney failure, unspecified Status: Acute (3) HTN (hypertension) Code(s): I10 - Essential (primary) hypertension Status: Acute - Plan 52-year-old man with Rhabdomyolysis Continue aggressive IV fluid hydration Monitor CK Acute renal failure Prerenal, secondary to dehydration Continue of IV fluid hydration and monitor BUN and creatinine Avoid all nephrotoxic drug Hypertension Resume outpatient medication Asthma No exacerbation DuoNeb as needed DVT prophylaxis: Bilateral SCDs
[2018-01-01 06:14] LABS: Baso % (Auto) 0.3 % (0.0-2.0); Eos # (Auto) 0.2 th/mm3 (0.0-0.4); Eos % (Auto) 3.5 % (0.0-4.0); Hematocrit 39.8 % (39.0-51.0); Hemoglobin 13.4 gm/dL (13.0-17.0); Lymph # (Auto) 2.3 th/mm3 (1.0-4.8); Lymph % (Auto) 40.4 % (9.0-44.0); Mean Corpuscular HGB Conc 33.7 % (32.0-36.0); Mean Corpuscular Hemoglobin 32.7 pg (27.0-34.0); Mean Corpuscular Volume 97.1 fL (80.0-100.0); Mono # (Auto) 0.7 th/mm3 (0.0-0.9); Mono % (Auto) 11.9 % (0.0-8.0); Neut # (Auto) 2.5 th/mm3 (1.8-7.7); Neut % (Auto) 43.9 % (16.0-70.0); Platelet Count 282 th/mm3 (150-450); Red Cell Distribution Width 14.8 % (11.6-17.2); White Blood Count 5.8 th/mm3 (4.0-11.0)
[2018-01-01 06:43] LABS: Alanine Aminotransferase 30 U/L (12-78); Alkaline Phosphatase 30 U/L (45-117); Anion Gap 9 meq/L (5-15); Aspartate Aminotransferase 44 U/L (15-37); Blood Urea Nitrogen 24 mg/dL (7-18); Calcium 8.2 mg/dL (8.5-10.1); Carbon Dioxide 26.2 meq/L (21.0-32.0); Chloride 105 meq/L (98-107); Creatine Kinase 2510 U/L (39-308); Glomerular Filtration Rate 61 mL/min (>89); Glucose,Random 89 mg/dL (74-106); Potassium 3.8 meq/L (3.5-5.1); Sodium 140 meq/L (136-145); Total Protein 6.3 g/dL (6.4-8.2)
[2018-01-01 07:14] LABS: CKMB Percent 0.5 % (0.0-4.0); Creatine Kinase MB 12.2 ng/mL (0.5-3.6)
[2018-01-01] MEDS: Lisinopril 20 MG Tablet PO SCH (08:37)
[2018-01-01] MEDS: Sod Chloride 0.9% Inj 1,000 ML IV.CONT SCH ×3 (10:18→19:01)
--- NOTE | 2018-01-01 11:46 | P.PN ---
Subjective Interval history: Follow-up rhabdomyolysis/acute kidney injury January 01, 2018-patient seen and examined, reported improvement of abdominal cramping as well as leg cramps. However CK worsening Physical Exam Vital signs: Vital Signs 12/31/17 12:00 12/31/17 16:00 12/31/17 20:00 Temperature 97.8 F 97.8 F 98.3 F Pulse Rate 59 L 61 88 Respiratory Rate 20 20 20 Blood Pressure 149/91 H 174/105 H 153/69 H Pulse Oximetry 98 99 99 12/31/17 21:34 01/01/18 00:00 01/01/18 04:00 Temperature 98.2 F 98.1 F 97.1 F L Pulse Rate 61 60 58 L Respiratory Rate 20 16 16 Blood Pressure 153/86 H 150/69 H 146/93 H Pulse Oximetry 99 97 98 01/01/18 08:00 Temperature 97.3 F L Pulse Rate 57 L Respiratory Rate 17 Blood Pressure 150/103 H Pulse Oximetry 97 Intake & Output 12/31/17 01/01/18 01/01/18 18:59 06:59 18:59 Intake Total 360 / 360 3240 / 3240 Output Total 550 / 550 Balance 360 / 360 2690 / 2690 Weight 100.9 kg 102.7 kg Intake: IV 3000 / 3000 NS Inj 1,000 ML @ 100 mls/hr IV 3000 / 3000 .CONT .Q10H [facility] Rx#:[id number] Oral 360 / 360 240 / 240 Output: Urine 550 / 550 Other: # Voids 2 1 # Bowel Movements 0 Weight On Admission 100.9 kg Narrative: GENERAL: NAD SKIN: Warm and dry. HEAD: Normocephalic. EYES: No scleral icterus. No injection or drainage. NECK: Supple, trachea midline. No JVD or lymphadenopathy. CARDIOVASCULAR: Regular rate and rhythm without murmurs, gallops, or rubs. RESPIRATORY: Breath sounds equal bilaterally. No accessory muscle use. GASTROINTESTINAL: Abdomen soft, non-tender, nondistended. MUSCULOSKELETAL: No cyanosis, or edema. BACK: Nontender without obvious deformity. No CVA tenderness. Results - Labs CBC & Chem 7: 01/01/18 05:16 01/01/18 05:16 Laboratory Results - last 24 hr 12/31/17 12/31/17 01/01/18 11:00 11:00 05:16 WBC 5.8 RBC 4.10 L Hgb 13.4 D Hct 39.8 MCV 97.1 MCH 32.7 MCHC 33.7 RDW 14.8 Plt Count 282 MPV 7.0 Neut % (Auto) 43.9 Lymph % (Auto) 40.4 [place] % (Auto) 11.9 H Eos % (Auto) 3.5 Baso % (Auto) 0.3 Neut # (Auto) 2.5 Lymph # (Auto) 2.3 [place] # (Auto) 0.7 Eos # (Auto) 0.2 Baso # (Auto) 0.0 WBC Differential . Differential Comment Auto diff final Sodium Potassium Chloride Carbon Dioxide Anion Gap BUN Creatinine Estimated GFR Random Glucose Calcium Total Bilirubin AST ALT Alkaline Phosphatase Total Creatine Kinase CK-MB (CK-2) CK-MB (CK-2) % Total Protein Albumin Urine Color Yellow Urine Clarity Hazy H Urine pH 5.0 Ur Specific [place] 1.024 Urine Protein 30 H Urine Glucose (UA) Negative Urine Ketones Negative Urine Occult Blood Small H Urine Nitrate Negative Urine Bilirubin Negative Urine Urobilinogen Less than 2 Ur Leukocyte Esterase Negative Urine RBC Less than 1 Urine WBC 4 Urine Bacteria Rare H Hyaline Casts 43 Urine Mucus Few H Micro UA Comment Culture not ind Urine Culture Comments Culture not ind Urine Opiates Screen Neg Ur Barbiturates Screen Neg Ur Amphetamines Screen Neg U Benzodiazepines Scrn Neg Urine Cocaine Screen Pos U Cannabinoids Screen Neg 01/01/18 05:16 WBC RBC Hgb Hct MCV MCH MCHC RDW Plt Count MPV Neut % (Auto) Lymph % (Auto) [place] % (Auto) Eos % (Auto) Baso % (Auto) Neut # (Auto) Lymph # (Auto) [place] # (Auto) Eos # (Auto) Baso # (Auto) WBC Differential Differential Comment Sodium 140 Potassium 3.8 Chloride 105 D Carbon Dioxide 26.2 Anion Gap 9 BUN 24 H Creatinine 1.47 H Estimated GFR 61 L Random Glucose 89 Calcium 8.2 L D Total Bilirubin 0.4 AST 44 H ALT 30 Alkaline Phosphatase 30 L Total Creatine Kinase 2510 H CK-MB (CK-2) 12.2 H CK-MB (CK-2) % 0.5 Total Protein 6.3 L D Albumin 3.0 L D Urine Color Urine Clarity Urine pH Ur Specific [place] Urine Protein Urine Glucose (UA) Urine Ketones Urine Occult Blood Urine Nitrate Urine Bilirubin Urine Urobilinogen Ur Leukocyte Esterase Urine RBC Urine WBC Urine Bacteria Hyaline Casts Urine Mucus Micro UA Comment Urine Culture Comments Urine Opiates Screen Ur Barbiturates Screen Ur Amphetamines Screen U Benzodiazepines Scrn Urine Cocaine Screen U Cannabinoids Screen Assessment and Plan - Assessment (1) Rhabdomyolysis Code(s): M62.82 - Rhabdomyolysis Status: Acute (2) Acute kidney injury Code(s): N17.9 - Acute kidney failure, unspecified Status: Acute (3) HTN (hypertension) Code(s): I10 - Essential (primary) hypertension Status: Chronic - Plan 52-year-old man with Rhabdomyolysis Worsening CK Continue aggressive IV fluid hydration, however increase IV fluid rate 150 cc /mL Monitor CK Acute renal failure Prerenal, secondary to dehydration Continue of IV fluid hydration and monitor BUN and creatinine Avoid all nephrotoxic drug Hypertension Continue outpatient medication Asthma No exacerbation DuoNeb as needed DVT prophylaxis: Bilateral SCDs
[2018-01-02] MEDS: Sod Chloride 0.9% Inj 1,000 ML IV.CONT SCH ×2 (02:19→09:55)
[2018-01-02] MEDS: Lisinopril 20 MG Tablet PO SCH (09:55)
[2018-01-02 10:33] LABS: Calcium 8.3 mg/dL (8.5-10.1); Carbon Dioxide 27.3 meq/L (21.0-32.0)
[2018-01-02 11:19] LABS: CKMB Percent 0.3 % (0.0-4.0); Creatine Kinase MB 4.1 ng/mL (0.5-3.6)
--- NOTE | 2018-01-02 12:51 | P.PN ---
Subjective Interval history: Follow-up rhabdomyolysis/acute kidney injury January 01, 2018-patient seen and examined, reported improvement of abdominal cramping as well as leg cramps. However CK worsening January 02, 2018-patient seen and examined, no complaint and denies any muscle cramping. Patient states is ready for discharge home , although CK despite trending down it is still elevated Physical Exam Vital signs: Vital Signs 01/01/18 16:00 01/01/18 20:00 01/02/18 00:00 Temperature 98.2 F 98 F 97.6 F Pulse Rate 61 58 L 69 Respiratory Rate 17 16 16 Blood Pressure 141/84 H 147/90 H 123/67 Pulse Oximetry 98 97 96 01/02/18 04:00 01/02/18 08:00 Temperature 98 F 98.0 F Pulse Rate 52 L 59 L Respiratory Rate 16 20 Blood Pressure 138/79 163/83 H Pulse Oximetry 98 98 Intake & Output 01/01/18 01/02/18 01/02/18 18:59 06:59 18:59 Intake Total 920 / 920 2720 / 2720 1000 / 1000 Output Total 2 / 2 1050 / 1050 Balance 918 / 918 1670 / 1670 1000 / 1000 Weight 104.4 kg Intake: IV 200 / 200 2000 / 2000 1000 / 1000 NS Inj 1,000 ML @ 150 mls/hr IV 100 / 100 2000 / 2000 1000 / 1000 .CONT .Q6H40M [facility] Rx#:[id number] Oral 720 / 720 720 / 720 Output: Urine 1050 / 1050 Stool 2 / 2 0 / 0 Other: # Voids 4 Date of Last Bowel Movement 01/01/18 01/01/18 Narrative: GENERAL: NAD SKIN: Warm and dry. HEAD: Normocephalic. EYES: No scleral icterus. No injection or drainage. NECK: Supple, trachea midline. No JVD or lymphadenopathy. CARDIOVASCULAR: Regular rate and rhythm without murmurs, gallops, or rubs. RESPIRATORY: Breath sounds equal bilaterally. No accessory muscle use. GASTROINTESTINAL: Abdomen soft, non-tender, nondistended. MUSCULOSKELETAL: No cyanosis, or edema. BACK: Nontender without obvious deformity. No CVA tenderness. Results - Labs CBC & Chem 7: 01/01/18 05:16 01/02/18 08:49 Laboratory Results - last 24 hr 01/02/18 08:49 Sodium 143 Potassium 4.0 Chloride 109 H Carbon Dioxide 27.3 Anion Gap 7 BUN 16 Creatinine 1.29 Estimated GFR 70 L Random Glucose 90 Calcium 8.3 L Total Creatine Kinase 1477 H CK-MB (CK-2) 4.1 H CK-MB (CK-2) % 0.3 - Procedures None Assessment and Plan - Assessment (1) Rhabdomyolysis Code(s): M62.82 - Rhabdomyolysis Status: Resolved (2) Acute kidney injury Code(s): N17.9 - Acute kidney failure, unspecified Status: Acute (3) HTN (hypertension) Code(s): I10 - Essential (primary) hypertension Status: Chronic - Plan 52-year-old man with Rhabdomyolysis Improving CK with aggressive IV fluid hydration; patient however clinically looks much better and improved Monitor CK Acute renal failure Prerenal, secondary to dehydration Continue of IV fluid hydration and monitor BUN and creatinine Avoid all nephrotoxic drug Hypertension Continue outpatient medication Asthma No exacerbation DuoNeb as needed DVT prophylaxis: Bilateral SCDs
--- NOTE | 2018-01-02 12:55 | P.DS ---
Date of admission: 12/31/17 06:24 Primary care physician: Bhupinder Mcconnell DO Brief History from admission: 52-year-old -[place] male with past medical history of hypertension presented yesterday to the ED for evaluation of an acute onset of abdominal and leg cramps, as a result of patient being outside under the sun for over 3 hours. Patient states, he was cutting his grass. He had no complaint of chest pain or shortness of breath. CK was elevated to 1300+. Patient was admitted few months ago and treated for rhabdomyolysis along with worsening renal function. DS: Diagnosis - Discharge Diagnosis (1) Rhabdomyolysis Status: Resolved (2) Acute kidney injury Status: Resolved (3) HTN (hypertension) Status: Chronic DS: Summary Hospital Course: Patient admitted secondary to rhabdomyolysis and was treated with aggressive IV fluid resuscitation with monitoring of CK throughout hospitalization. Patient renal function improve as well. He was continued on his treatment for other chronic medical condition. Vitals were monitored. DVT and GI prophylaxis were provided. Prior to discharge, patient's condition improve and he will follow- up with his PCP within a week. - Time Spent with Patient Total time spent providing and/or coordinating discharge services: Less than 30 minutes - Quality: VTE Deep Vein Thrombosis/Pulmonary Embolism Present on Admission: No Exam Vital signs: Vital Signs 01/01/18 16:00 01/01/18 20:00 01/02/18 00:00 Temperature 98.2 F 98 F 97.6 F Pulse Rate 61 58 L 69 Respiratory Rate 17 16 16 Blood Pressure 141/84 H 147/90 H 123/67 Pulse Oximetry 98 97 96 01/02/18 04:00 01/02/18 08:00 Temperature 98 F 98.0 F Pulse Rate 52 L 59 L Respiratory Rate 16 20 Blood Pressure 138/79 163/83 H Pulse Oximetry 98 98 Intake & Output 01/01/18 01/02/18 01/02/18 18:59 06:59 18:59 Intake Total 920 / 920 2720 / 2720 1000 / 1000 Output Total 2 / 2 1050 / 1050 Balance 918 / 918 1670 / 1670 1000 / 1000 Weight 104.4 kg Intake: IV 200 / 200 1999 / 1999 1000 / 1000 NS Inj 1,000 ML @ 150 mls/hr IV 100 / 100 1999 / 1999 1000 / 1000 .CONT .Q6H40M [facility] Rx#:[id number] Oral 720 / 720 720 / 720 Output: Urine 1050 / 1050 Stool 2 / 2 0 / 0 Other: # Voids 4 Date of Last Bowel Movement 01/01/18 01/01/18 Results Procedures completed during hospitalization: None Labs on day of discharge: Labs from last 24 hours 01/02/18 08:49 Sodium 143 Potassium 4.0 Chloride 109 H Carbon Dioxide 27.3 Anion Gap 7 BUN 16 Creatinine 1.29 Estimated GFR 70 L Random Glucose 90 Calcium 8.3 L Total Creatine Kinase 1477 H CK-MB (CK-2) 4.1 H CK-MB (CK-2) % 0.3 Discharge Plan - Discharge Disposition Patient Disposition: Discharge Home - Discharge Condition Condition: Good - Discharge Order Discharge Orders: Discharge Order (Routine); Ordered 01/02/18 Ordered By: Kofi Murphy - Physicians Team Primary Care Provider: Bhupinder Mcconnell Attending Provider: Kofi Murphy
== END 2018-01-02 14:50 | disposition home or self-care (01) ==
LOC: NEPC 21:04 → NEDA 12-31 06:24 → N04 12-31 07:25
PROVIDERS: ADMIT Hospitalist; ATTEND Hospitalist

== ENCOUNTER 2018-08-14 16:35 | Observation (INO) ==
[2018-08-14] MEDS ORDERED: Aspirin 325 MG Tablet PO ONE (17:41)
[2018-08-14 18:18] LABS: Baso % (Auto) 0.4 % (0.0-2.0); Eos # (Auto) 0.2 th/mm3 (0.0-0.4); Eos % (Auto) 2.4 % (0.0-4.0); Hematocrit 43.8 % (39.0-51.0); Hemoglobin 14.9 gm/dL (13.0-17.0); Lymph # (Auto) 1.9 th/mm3 (1.0-4.8); Lymph % (Auto) 25.9 % (9.0-44.0); Mean Corpuscular HGB Conc 33.9 % (32.0-36.0); Mean Corpuscular Hemoglobin 32.6 pg (27.0-34.0); Mean Platelet Volume 7.2 fL (7.0-11.0); Mono # (Auto) 0.8 th/mm3 (0.0-0.9); Mono % (Auto) 10.6 % (0.0-8.0); Neut # (Auto) 4.4 th/mm3 (1.8-7.7); Neut % (Auto) 60.7 % (16.0-70.0); Platelet Count 314 th/mm3 (150-450); Red Blood Count 4.56 mil/mm3 (4.50-5.90); Red Cell Distribution Width 14.8 % (11.6-17.2); White Blood Count 7.3 th/mm3 (4.0-11.0)
--- NOTE | 2018-08-14 18:35 | XR ---
EXAM DATE: 08/14/2018 6:29 PM EST AGE/SEX: 53 years / Male INDICATIONS: Chest pain. CLINICAL DATA: This is the patient's initial encounter. Patient reports that signs and symptoms have been present for 1 day and indicates a pain score of 0/10. MEDICAL/SURGICAL HISTORY: Hypertension. Asthma. None. COMPARISON: [facility] [place], CHEST SINGLE AP, 08/06/2016. . FINDINGS: A single AP view of the chest demonstrates the lungs to be symmetrically aerated without evidence of mass, infiltrate or effusion. The cardiomediastinal contours are unremarkable. Osseous structures a re intact. CONCLUSION: No acute cardiopulmonary process. Electronically signed by: Bhupinder Mobley MD Board Certified Radiologist 08/14/2018 6:34 PM EST
[2018-08-14 18:36] LABS: Alanine Aminotransferase 27 U/L (12-78); Albumin 3.9 g/dL (3.4-5.0); Anion Gap 6 meq/L (5-15); Aspartate Aminotransferase 19 U/L (15-37); Blood Urea Nitrogen 10 mg/dL (7-18); Calcium 8.8 mg/dL (8.5-10.1); Carbon Dioxide 29.4 meq/L (21.0-32.0); Chloride 105 meq/L (98-107); Glomerular Filtration Rate 73 mL/min (>89); Glucose,Random 81 mg/dL (74-106); Lipase 130 U/L (73-393); Potassium 3.7 meq/L (3.5-5.1); Sodium 140 meq/L (136-145)
[2018-08-14 18:40] LABS: Activated Partial Thrombo Time 26.4 sec (23.4-31.7); INR 1.1 Ratio; Prothrombin Time 10.9 sec (9.8-11.6)
[2018-08-14 18:42] LABS: Alkaline Phosphatase 43 U/L (45-117); Creatine Kinase 614 U/L (39-308); Total Protein 7.9 g/dL (6.4-8.2)
[2018-08-14 18:54] LABS: CKMB Percent 0.4 % (0.0-4.0); Creatine Kinase MB 2.7 ng/mL (0.5-3.6)
--- NOTE | 2018-08-14 19:08 | ED ---
HPI General Chief Complaint: Chest Pain Stated Complaint: Chest pain Time Seen by Provider: 08/14/18 17:32 Source: patient and family Mode of arrival: ambulatory Limitations: no limitations History of Present Illness HPI narrative: 63-year-old male who presents to the ED for evaluation of chest pain on and off for the past 3 days. Patient reports having chest pain on and off for the past 3 days but more severe today. Per patient it feels like gas pain is only on the left side. Nothing seems to make it better or worse. He thought it was gas and has been taking gas medication with minimal relief. Per patient the pain has not improved which is what prompted him to come here. Per patient the pain is 6 out of 10. States that it is sharp. Does not radiate. No numbness, tingling, weakness. No headache. No fever chills or sweats been no cough or runny nose. Patient does have a family history of heart disease and states has a history of high blood pressure. Takes medications for the blood pressure. No smoking. No drugs. No alcohol. Has not had a stress test in the past year. Related Data Previous Rx's Medication Instructions Recorded lisinopril 20 mg PO DAILY #30 mg 01/02/18 Allergies Allergy/AdvReac Type Severity Reaction Status Date / Time No Known Allergies Allergy Verified 08/14/18 17:47 Review of Systems ROS: all other systems reviewed are negative [facility] Medical History Medical History Asthma (Acute) HTN (hypertension) (Chronic) Social History Social History Substance History: No History of Abuse Second Hand Smoke Exposure: No Smoking Status: Never smoker How Often Do You Have a Drink Containing Alcohol: Never Recent Travel in [facility] within the Last 8 Weeks: No Recent Out of Country Travel within the Last 8 Weeks: No Immunization History Tetanus Immunization: >5 Years Exam Narrative Exam Narrative: GENERAL: Well-appearing in no distress. SKIN: Focused skin assessment warm/dry. HEAD: Atraumatic. Normocephalic. EYES: Pupils equal and round. No scleral icterus. No injection or drainage. ENT: No nasal bleeding or discharge. Mucous membranes pink and moist. Tongue is midline. No uvula deviation. NECK: Trachea midline. No JVD. CARDIOVASCULAR: Regular rate and rhythm. No murmur appreciated. RESPIRATORY: No accessory muscle use. Clear to auscultation. Breath sounds equal bilaterally. GASTROINTESTINAL: Abdomen soft, non-tender, nondistended. Hepatic and splenic margins not palpable. MUSCULOSKELETAL: No obvious deformities. No clubbing. No cyanosis. No edema. Full range of motion of the upper and lower extremities bilaterally. 2+ pulses bilaterally. NEUROLOGICAL: Awake and alert. No obvious cranial nerve deficits. Motor grossly within normal limits. Normal speech. PSYCHIATRIC: Appropriate mood and affect; insight and judgment normal. Course Initial Documented Vital Signs Temperature 98.5 F 08/14/18 16:38 Pulse Rate 75 08/14/18 16:38 Respiratory Rate 18 08/14/18 16:38 Blood Pressure 200/100 H 08/14/18 16:38 Pulse Oximetry 97 08/14/18 16:38 Last Documented Vital Signs Temperature 98.5 F 08/14/18 16:38 Pulse Rate 79 08/14/18 21:42 Respiratory Rate 16 08/14/18 21:42 Blood Pressure 198/97 H 08/14/18 21:42 Pulse Oximetry 99 08/14/18 21:42 Medical Decision Making MDM Narrative Medical decision making narrative: 53-year-old male who presents to the ED for evaluation of chest pain. Patient was properly examined and was found to have signs and symptoms consistent with appears to be chest pain. Concerning for ACS. Labs and imaging ordered. Labs and imaging were essentially unremarkable for acute disease. Patient was found to be hypertensive. Patient was given medications for hypertension with improvement of symptoms. Nitroglycerin and aspirin were given as well. This time recommendations for admission to the chest pain center for further evaluation and stress test. Patient agrees with this plan. Patient was admitted to the chest pain center by me. Medical Screen Exam Complete: Yes Emergency Medical Condition: Yes Differential Diagnosis Differential Diagnosis: Chest pain versus atypical chest pain versus ACS versus n STEMI Medical Records Medical records reviewed: Yes I reviewed the patient's medical records. Lab Data Lab results reviewed: Yes I reviewed the patient's lab results. Result diagrams: 08/14/18 17:45 08/14/18 17:45 Lab Results 08/14/18 08/14/18 08/14/18 Range/Units 17:45 17:45 17:45 WBC 7.3 (4.0-11.0) th/mm3 RBC 4.56 (4.50-5.90) mil/mm3 Hgb 14.9 (13.0-17.0) gm/dL Hct 43.8 (39.0-51.0) % MCV 96.0 (80.0-100.0) fL MCH 32.6 (27.0-34.0) pg MCHC 33.9 (32.0-36.0) % RDW 14.8 (11.6-17.2) % Plt Count 314 (150-450) th/mm3 MPV 7.2 (7.0-11.0) fL Neut % (Auto) 60.7 (16.0-70.0) % Lymph % (Auto) 25.9 (9.0-44.0) % [place] % (Auto) 10.6 H (0.0-8.0) % Eos % (Auto) 2.4 (0.0-4.0) % Baso % (Auto) 0.4 (0.0-2.0) % Neut # (Auto) 4.4 (1.8-7.7) th/mm3 Lymph # (Auto) 1.9 (1.0-4.8) th/mm3 [place] # (Auto) 0.8 (0.0-0.9) th/mm3 Eos # (Auto) 0.2 (0.0-0.4) th/mm3 Baso # (Auto) 0.0 (0.0-0.2) th/mm3 WBC Differential . Differential Comment Auto diff final PT 10.9 (9.8-11.6) sec INR 1.1 Ratio APTT 26.4 (23.4-31.7) sec Sodium 140 (136-145) meq/L Potassium 3.7 (3.5-5.1) meq/L Chloride 105 (98-107) meq/L Carbon Dioxide 29.4 (21.0-32.0) meq/L Anion Gap 6 (5-15) meq/L BUN 10 (7-18) mg/dL Creatinine 1.24 (0.60-1.30) mg/dL Estimated GFR 73 L (>89) mL/min Random Glucose 81 (74-106) mg/dL Calcium 8.8 (8.5-10.1) mg/dL Total Bilirubin 0.4 (0.2-1.0) mg/dL AST 19 (15-37) U/L ALT 27 (12-78) U/L Alkaline Phosphatase 43 L (45-117) U/L Total Creatine Kinase 614 H (39-308) U/L CK-MB (CK-2) 2.7 (0.5-3.6) ng/mL CK-MB (CK-2) % 0.4 (0.0-4.0) % Troponin I Less than 0.02 L (0.02-0.05) ng/mL Total Protein 7.9 (6.4-8.2) g/dL Albumin 3.9 (3.4-5.0) g/dL Lipase 130 (73-393) U/L Imaging Data Attestation: I personally reviewed and interpreted this imaging study as follows : Radiologist's impression: Chest X-Ray 08/14/18 17:41 CONCLUSION: No acute cardiopulmonary process. ECG Data Attestation: I personally reviewed and interpreted this ECG as follows: Interpretation: EKG shows sinus rhythm with no sign of acute ischemia or arrhythmia read by me and attending. Ventricular rate of 63 bpm, [place] interval of [address] elevations noted. Discharge Plan Discharge Disposition Patient Disposition: ED Admit(ED Internal Use Only) Discharge Order Discharge Orders: ED Use Only Admit Order (Routine); Ordered 08/14/18 Ordered By: Trae Selby Discharge Details Diagnosis: Chest pain, rule out acute myocardial infarction Physicians Team ED Provider: Orlando Arce ED Midlevel Provider: Trae Selby Primary Care Provider: Bhupinder Mcconnell Attending Provider: Asmita Benitez ED Status: Admitted Observation Patient
--- NOTE | 2018-08-14 19:11 | ECG ---
Date Performed: 08/14/2018 Time Performed: 16:48:10 PTAGE: 53 years EKG: Sinus rhythm Nonspecific T wave changes ABNORMAL ECG Compared to prior electrocardiogram, Anterolateral ST elevat ion has resolved. DOCTOR: Danielito Miller Interpretating Date/Time 08/14/2018 19:10:47
[2018-08-14] MEDS ORDERED: hydrALAZINE HCl Inj 20 MG/ML Vial IV.PUSH ONE (21:08)
[2018-08-14] MEDS ORDERED: Acetaminophen 500 MG Tablet PO PRN (22:16)
[2018-08-15 00:35] LABS: Creatine Kinase 463 U/L (39-308)
[2018-08-15 00:48] LABS: CKMB Percent 0.3 % (0.0-4.0); Creatine Kinase MB 1.4 ng/mL (0.5-3.6)
[2018-08-15 03:33] VITALS: PULSE 65; RESP 18
[2018-08-15 04:49] LABS: Creatine Kinase 448 U/L (39-308)
[2018-08-15 05:01] LABS: CKMB Percent 0.4 % (0.0-4.0); Creatine Kinase MB 1.7 ng/mL (0.5-3.6)
--- NOTE | 2018-08-15 09:19 | P.HPCA ---
History of Present Illness Service: Chest pain center Primary Care Physician: DO Dr. Jayesh Campuzano Chief Complaint: Chest pain high blood pressure History of Present Illness: Pleasant 63-year-old black gentleman who presents with complaints of chest pain off and on over the last 3 days. Patient has a good deal of difficulty with indigestion and gas and thought this was again gas but did not get relief with his usual attempts to relieve his stomach discomfort. 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 The pain is described as sharp throbbing pain in his left chest which lasts for about 30 minutes or so when it starts. The severity is 6 out of 10. There are no no radiation and no associated symptoms. He also has a long history of hypertension originally treated with lisinopril which he is not taking any longer but now treated with a medicine that begins with H and is 50 mg. Every does not take it because it makes him feel drowsy. He has a family history of coronary artery disease and mother as a result of coronary disease after bypass grafting. He denies any other significant issues at this current time. Review of Systems All other systems reviewed negative except as stated in HPI PMFSH - History History Provided By: Patient - Medical History Medical History: Medical History (Last Updated 08/15/18 @ 09:12 by Oscar Noguera MD) Asthma (Acute) HTN (hypertension) (Chronic) Blind right eye Traumatic injury of head - Family History Family History: Family History (Last Updated 08/15/18 @ 09:13 by Oscar Noguera MD) Other Family history of acute myocardial infarction - Tobacco History Second Hand Smoke Exposure: No Smoking Status: Never smoker - Alcohol History How Often Do You Have a Drink Containing Alcohol: Never - Substance Use History Substance History: No History of Abuse - Travel History Recent Travel in the [place] Within the Last 8 Weeks: No Recent Travel Out of the Country Within the Last 8 Weeks: No - Immunization History Tetanus Immunization: >5 Years Medications and Allergies Active Medications: Active Medications Acetaminophen (Tylenol) 500 mg PO Q4H PRN PRN Reason: HEADACHE Hydrocodone Bitart/Acetaminophen ([place] 7.5/325) 1 tab PO Q4H PRN PRN Reason: PAIN SCALE 1 TO 7 Ondansetron HCl (Zofran Inj) 4 mg IV.PUSH Q6H PRN PRN Reason: NAUSEA Sodium Chloride (Ns Flush) 2 ml IV.FLUSH UNSCH PRN PRN Reason: FLUSH AFTER USING IV ACCESS Last Admin: 08/14/18 17:51 Dose: 2 ml Sodium Chloride (Ns Flush) 2 ml IV.FLUSH BID HAZEL Sodium Chloride (Ns Flush) 2 ml IV.FLUSH PRN PRN PRN Reason: FLUSH AFTER USING IV ACCESS Allergies Allergy/AdvReac Type Severity Reaction Status Date / Time No Known Allergies Allergy Verified 08/14/18 17:47 Exam Vital signs: Vital Signs 08/14/18 16:38 08/14/18 17:41 08/14/18 19:26 Temperature 98.5 F Pulse Rate 75 68 61 Respiratory Rate 18 20 Blood Pressure 200/100 H 247/117 H Pulse Oximetry 97 96 98 08/14/18 21:29 08/14/18 21:42 08/14/18 22:52 Temperature Pulse Rate 62 79 68 Respiratory Rate 15 16 17 Blood Pressure 213/112 H 198/97 H 171/84 H Pulse Oximetry 98 99 98 08/15/18 00:00 08/15/18 03:20 08/15/18 03:31 Temperature 98.3 F 97.8 F Pulse Rate 78 65 65 Respiratory Rate 20 18 Blood Pressure 183/95 H 180/90 H Pulse Oximetry 95 95 08/15/18 07:51 Temperature 98.2 F Pulse Rate 65 Respiratory Rate 18 Blood Pressure 183/96 H Pulse Oximetry 94 L Intake & Output 08/14/18 08/15/18 08/15/18 18:59 06:59 18:59 Weight 90.718 kg 90.72 kg Other: Date of Last Bowel Movement 08/14/18 Weight On Admission 90.718 kg Narrative: 63-year-old black male resting comfortably in bed Skin warm and dry, normal texture turgor. Well-healed scar on the right forehead, and in the right forearm. Head prior traumatic injury to the right forehead otherwise unremarkable Eyes pupils discs equal with a blind right eye and divergent gaze but left pupil responds briskly to stimulation and extraocular movement intact. Conjunctiva injected Mouth mucous membranes moist tongue well papillated, dental caries, but no lesions Neck supple no JVD masses nodes or bruits Chest clear to auscultation with no rales wheezes or rhonchi Cardiovascular regular rhythm with no gallop rub or murmur Abdomen soft nontender no guarding or rebound no hepatosplenomegaly Extremities no clubbing cyanosis or edema Neurologic patient is a blind right eye but cranial nerves otherwise intact although olfactory and acoustic not tested Psychiatric patient is oriented judgment appears to be good and affect is normal Results 08/14/18 17:45 08/14/18 17:45 Cardiac Enzymes 08/14/18 08/14/18 08/15/18 Range/Units 17:45 23:50 04:00 AST 19 (15-37) U/L CK-MB (CK-2) 2.7 1.4 1.7 (0.5-3.6) ng/mL Troponin I Less than 0.02 L Less than 0.02 L Less than 0.02 L (0.02-0.05) ng/mL Coagulation 08/14/18 Range/Units 17:45 PT 10.9 (9.8-11.6) sec APTT 26.4 (23.4-31.7) sec CBC 08/14/18 Range/Units 17:45 WBC 7.3 (4.0-11.0) th/mm3 RBC 4.56 (4.50-5.90) mil/mm3 Hgb 14.9 (13.0-17.0) gm/dL Hct 43.8 (39.0-51.0) % Plt Count 314 (150-450) th/mm3 Neut # (Auto) 4.4 (1.8-7.7) th/mm3 Lymph # (Auto) 1.9 (1.0-4.8) th/mm3 [place] # (Auto) 0.8 (0.0-0.9) th/mm3 Eos # (Auto) 0.2 (0.0-0.4) th/mm3 Baso # (Auto) 0.0 (0.0-0.2) th/mm3 Comprehensive Metabolic Panel 08/14/18 Range/Units 17:45 Sodium 140 (136-145) meq/L Potassium 3.7 (3.5-5.1) meq/L Chloride 105 (98-107) meq/L Carbon Dioxide 29.4 (21.0-32.0) meq/L BUN 10 (7-18) mg/dL Creatinine 1.24 (0.60-1.30) mg/dL Calcium 8.8 (8.5-10.1) mg/dL AST 19 (15-37) U/L ALT 27 (12-78) U/L Alkaline Phosphatase 43 L (45-117) U/L Total Protein 7.9 (6.4-8.2) g/dL Albumin 3.9 (3.4-5.0) g/dL Intake and Output 08/14/18 08/15/18 08/15/18 22:59 06:59 14:59 Other: Date of Last Bowel Movement 08/14/18 Weight 90.718 kg 90.72 kg Weight On Admission 90.718 kg - Imaging and Cardiology Imaging: Impressions Chest X-Ray 08/14/18 17:41 CONCLUSION: No acute cardiopulmonary process. Caprini VTE Risk Assessment Caprini VTE Risk Assessment: No/Low Risk (score <= 1) Caprini Risk Assessment Model: Point Value = 1 Point Value = 2 Point Value = 3 Point Value = 5 Age 41-60 Minor surgery BMI > 25 kg/m2 Swollen legs Varicose veins or History of unexplained or recurrent spontaneous Oral contraceptives or hormone replacement Sepsis (< 1 month) Serious lung disease, including pneumonia (< 1 month) Abnormal pulmonary function Acute myocardial infarction Congestive heart failure (< 1 month) History of inflammatory bowel disease Medical patient at bed rest Age 61-74 Arthroscopic surgery Major open surgery (> 45 min) Laparoscopic surgery (> 45 min) Malignancy Confined to bed (> 72 hours) Immobilizing plaster cast Central venous access Age >= 75 History of VTE Family history of VTE Factor V Leiden Prothrombin [id number] Lupus anticoagulant Anticardiolipin antibodies Elevated serum homocysteine Heparin-induced thrombocytopenia Other congenital or acquired thrombophilia Stroke (< 1 month) Elective arthroplasty Hip, pelvis, or leg fracture Acute spinal cord injury (< 1 month) Prophylaxis Regimen: Total Risk Factor Score Risk Level Prophylaxis Regimen 0-1 Low Early ambulation 2 Moderate Order ONE of the following: *Sequential Compression Device (SCD) *Heparin 5000 units SQ BID 3-4 Higher Order ONE of the following medications: *Heparin 5000 units SQ TID *Enoxaparin/Lovenox 40 mg SQ daily (WT < 150 kg, CrCl > 30 mL/min) *Enoxaparin/Lovenox 30 mg SQ daily (WT < 150 kg, CrCl > 10-29 mL/min) *Enoxaparin/Lovenox 30 mg SQ BID (WT < 150 kg, CrCl > 30 mL/min) AND/OR *Sequential Compression Device (SCD) 5 or more Highest Order ONE of the following medications: *Heparin 5000 units SQ TID (Preferred with Epidurals) *Enoxaparin/Lovenox 40 mg SQ daily (WT < 150 kg, CrCl > 30 mL/min) *Enoxaparin/Lovenox 30 mg SQ daily (WT < 150 kg, CrCl > 10-29 mL/min) *Enoxaparin/Lovenox 30 mg SQ BID (WT < 150 kg, CrCl > 30 mL/min) AND *Sequential Compression Device (SCD) Assessment and Plan - Plan This patient has a history of hypertension poorly treated and a positive family history. His current presentation is atypical but does seem to be exaggerated by activity. Patient initially wanted to leave without any stress testing and wants to eat but after discussion is agreeable to a walking stress test. He has resting EKG changes but it was felt a walking test would indicate precipitation of symptoms and possible EKG changes. If these are found I believe he can be convinced to stay for further evaluation. If negative will discharge home with some changes in his medication to follow-up with his primary care physician. Code Status: Full code Discussed Condition With: Discussed with patient Discharge Planning: If stress testing is positive encouraged him to stay for further nuclear evaluation if negative will increase his blood pressure medication and discharged for follow-up with his primary care physician Dr. Mcconnell - Attending Attestation I attest that this patient's presentation warrants the evaluation and treatment he is undergoing. H&P: Quality - VTE Deep Vein Thrombosis/Pulmonary Embolism Present on Admission: No
[2018-08-15] MEDS ORDERED: hydroCHLOROthiazide 25 MG Tablet PO SCH (09:30)
[2018-08-15] MEDS ORDERED: amLODIPine 10 MG Tablet PO SCH (09:30)
[2018-08-15] MEDS ORDERED: Potassium Chloride 10 MEQ ER Capsule PO SCH (09:30)
[2018-08-15 11:17] VITALS: TEMP 98.1; O2SAT 97
[2018-08-15] MEDS ORDERED: Lisinopril 20 MG Tablet PO SCH (12:00)
[2018-08-15] MEDS ORDERED: Regadenoson Inj 0.4 MG/5 ML Syringe IV.PUSH ONE (12:10)
--- NOTE | 2018-08-15 12:57 | ECG ---
Date Performed: 08/15/2018 Time Performed: 03:58:13 PTAGE: 53 years EKG: Sinus rhythm LEFT VENTRICULAR HYPERTROPHY AND ST-T CHANGE ABNORMAL ECG Persistent ST-T changes clinical correlati on strongly recommended PREVIOUS TRACING : 08/14/2018 23.49 DOCTOR: Oscar Noguera Interpretating Date/Time 08/15/2018 12:54:18
--- NOTE | 2018-08-15 12:58 | ECG ---
Date Performed: 08/14/2018 Time Performed: 23:49:37 PTAGE: 53 years EKG: Sinus rhythm LEFT VENTRICULAR HYPERTROPHY AND ST-T CHANGE ABNORMAL ECG Persistent ST-T changes but no significant change from prior tracing PREVIOUS TRACING : 08/14/2018 16.48 DOCTOR: Oscar Noguera Interpretating Date/Time 08/15/2018 12:55:27
--- NOTE | 2018-08-15 16:39 | NM ---
EXAM DATE: 08/15/2018 4:34 PM EST AGE/SEX: 53 years / Male INDICATIONS:Angina. . CLINICAL DATA: This is the patient's initial encounter. Patient reports that signs and symptoms have been present for 3 days and indicates a pain score of 6/10. MEDICAL/SURGICAL HISTORY: Hypertension. Asthma. None. COMPARISON: [facility] [place]OCARDIAL PERF PHARM SPECT, 04/01/2011. . DOSE: 8.7 mCi Tc 99m Myoview at rest 25.9 mCi [id number] at stress 0.4 mg Lexiscan STRESS SYMPTOMS: None. EJECTION FRACTION: 40 % TECHNIQUE: The patient underwent pharmacologic stress with infusion of prescribed dose. Continuous ECG tracing was monitored during stress. Gated SPECT imaging was performed after stress and conventi onal SPECT imaging was performed at rest. The examination was performed on a SPECT/CT scanner, both attenuation and non-corrected datasets were reviewed. FINDINGS: Distribution: The maximum perfused segment at stress is in the septal wall. Perfusion Study: The pattern of perfusion at stress is within normal limits. Gated Study: There are intact wall motion and wall thickening without hypokinetic or dyskinetic segm ents. The ejection fraction is calculated at 40%. RISK CATEGORY: Intermediate (1-3 % Annual Mortality Rate) CONCLUSION: 1. No reversible perfusion defects. 2. Ejection fraction 40%. Electronically signed by: Kofi Cassidy MD Board Certified Radiologist 08/15/2018 4:38 PM EST
[2018-08-15 16:55] VITALS: BP 168/90
--- NOTE | 2018-08-16 12:37 | TR ---
Date Performed: 08/15/2018 Time Performed: 15:15:02 DOCTOR: Oscar Noguera DRUG LIST: CLINICAL HISTORY: ANGINA REASON FOR TEST: Angina REASON FOR ENDING: OBSERVATION: CONCLUSION: Lexiscan stress test was performed under standard four minute protocol. Radionuclide was injected one minute prior to ending the test. No electrocardiographic abormalities were present to suggest ischemia. Nuclear imaging and interpretation are pending. COMMENTS: Non specific T wave change in the inferior wall but non diagnostic. Image results mervat dumont.
== END 2018-08-15 17:22 | disposition home or self-care (01) ==
LOC: NEPE 16:35 → NEDA 16:35 → NEPFCDU 23:59
PROVIDERS: ADMIT Internal Medicine Interventional Cardiology; ATTEND Internal Medicine Interventional Cardiology
DX: Z82.49 Family history of ischemic heart disease and other diseases of the circulatory system; J45.909 Unspecified asthma, uncomplicated; H54.61 Unqualified visual loss, right eye, normal vision left eye; I10 Essential (primary) hypertension; R94.31 Abnormal electrocardiogram [ECG] [EKG]; R07.89 Other chest pain
CPT/HCPCS: 71010; 71045; 78452; 80053; 82550; 82552; 83690; 84484; 85025; 85610; 85730; 90774; 90784; 93005; 93017; 96374; 99285; A9502; C8952; G0378; J0360; J2785; Q9969